=== PATIENT | female | born 1965 | race Caucasian/White ===

== ENCOUNTER → 2018-08-18 15:53 | Outpatient (CLI) | payer BC, SELFPAY ==
[2018-08-18 17:54] LABS: Anion Gap 7 (5-15); BUN 16 mg/dL (7-18); BUN/Creat Ratio 18.9 RATIO (10-20); Calcium,Total 9.1 mg/dL (8.5-10.1); Chloride 105 mmol/L (98-107); Creatinine, Serum 0.85 mg/dL (0.55-1.02); EST Glomerular Filtration Rate 75 mL/min (>60); Est Glom Filt Rate - Afr Amer 91 mL/min (>60); Glucose 82 mg/dL (74-106); Sodium Level 140 mmol/L (136-145); T4 Free Direct 0.93 ng/dL (0.76-1.46); Thyroid Stim Hormone (TSH) 1.28 uIU/mL (0.358-3.74)
== END ==
PROVIDERS: Family Provider Family Medicine; PCP Family Medicine; Visit Provider Family Medicine
DX: R73.01 Impaired fasting glucose (principal); I10 Essential (primary) hypertension; E66.01 Morbid (severe) obesity due to excess calories
CPT/HCPCS: 36415; 80048; 84439; 84443

== ENCOUNTER → 2018-09-02 08:37 | Outpatient (CLI) | payer BC, SELFPAY ==
--- NOTE | 2018-09-02 08:40 | BI_ITS ---
MAMMOGRAPHY - BILATERAL SCREENING REASON FOR EXAM: Female, 52 years old. Routine annual screening examination. PERTINENT HISTORY: Grandmother with breast cancer. TECHNIQUE: Digital bilateral breast jesika (3D mammographic acquisition) in the CC and MLO projections. 2-D mediolateral oblique (MLO) and craniocaudad (CC) views of both breasts were obtained. CAD: Full Field Digital Mammography with Computer Added Detection was performed. COMPARISON: Comparison is made with prior outside examination dated March 06, 2017. FINDINGS: Breast Composition: There are scattered areas of fibroglandular density. There are no dominant masses or suspicious calcifications. No other significant abnormalities are identified. There has been no significant change since the prior study. BI/SCREENING MAMM (CAD), BILAT IMPRESSION: Stable bilateral screening mammogram. Yearly follow-up mammogram recommended. (A) ASSESSMENT CATEGORY: BIRADS Category 1: Negative. A letter regarding these results will be sent to the patient by the facility within 30 days. Approximately 10% of breast cancers are not detected by mammography. A normal mammogram should not delay biopsy of a clinically suspicious abnormality. [id number] Electronically Signed: Bert Mitchell MD at 10:59 EST Tel [phone], Service support ,
--- OUTSIDE RECORDS SUMMARY | 2018-10-14 21:25 | XMS RPT_ITS ---
:1965 Author Organization OHIP Care Team Providers Name Role Phone Vicente Peraza Attending Unavailable Vicente Peraza Primary Care Unavailable Alivia Healy Attending Unavailable Alivia Healy Referring Unavailable Vicente Peraza Primary Care Unavailable Rianna Alvarado Attending Unavailable Vicente Peraza Referring Unavailable Rianna Alvarado Attending Unavailable Rianna Alvarado Referring Unavailable Vicente Peraza Primary Care Unavailable PROBLEMS PROBLEMS DATE TYPE CONDITION / CODE ATTENDING STATUS SOURCE 09/02/2018 Unknown Z01.419 - Encounter Rianna Alvarado for gynecological Community examination [facility] (general) (routine) Repository without abnormal findings / Z01.419(ICD-10) 09/02/2018 Unknown Z12.4 - Encounter Rianna Alvarado for screening for Community malignant neoplasm Hospital of cervix / Repository Z12.4(ICD-10) 09/03/2018 Unknown Z12.31 - Encounter Nelida Healy [facility] Repository of breast / Z12.31(ICD-10) 08/18/2018 Unknown R73.01 - Impaired Vicente Peraza Active [place] fasting glucose / Community R73.01(ICD-10) Hospital Repository 08/18/2018 Unknown I10 - Essential Vicente Peraza (primary) [facility] hypertension / Hospital I10(ICD-10) Repository 08/18/2018 Unknown E66.01 - Morbid Vicente Peraza (severe) obesity Community due to excess Hospital calories / Repository E66.01(ICD-10) PROCEDURES PROCEDURES No Procedure Records FoundRESULTS RESULTS HERBARIUM CURATOR OFFICE VISIT Observed: 09/02/2018 Status: F Source: GEO REPORT 10:27 AM [facility] REPOSITORY [facility] [address] [place] [address] OFFICE VISIT Date of Service: 09/02/18 MR#: [id number] Acct: [id number] Name: KARIS VASQUEZ Rep #: [id number] : 1965 Provider: LEONELA Alvarado Age/Sex: 52/F Location: [facility] Status: Signed Intake Vital Signs09/02/18 Height 4 ft 11.25 in 09/02/18 Weight: 242 lb 4 oz 09/02/18 Body Mass Index (BMI) 48.5 09/02/18 Blood Pressure 128/80 H Intake Visit Reasons: ANNUAL/Has seen Lining Finisher Required: No Is patient in pain?: No Allergies latex Allergy (Verified 09/02/18 09:30) Swelling Medications Esomeprazole Mag Trihydrate [Nexium] 20 mg PO DAILY 09/12/14 [History Confirmed 09/02/18] Loratadine [Claritin] 10 mg PO DAILY 09/12/14 [History Confirmed 09/02/18] Multivitamins,Therapeutic [Multivitamin] 1 tab PO DAILY 09/12/14 [History Confirmed 09/02/18] Lisinopril [Zestril] 1 tab PO DAILY 09/04/17 [History Confirmed 09/02/18] Is last menstrual period known: Yes Last Menstral Period: 08/05/18 Post menopausal: No Patient : No : No PFSH Medical History Hypertension (Chronic) Surgical History Basal cell carcinoma (Acute) delivery delivered (Acute) History of tonsillectomy and adenoidectomy (Acute) Family History Father Lung cancer Heart disease Mother Lung cancer Alzheimer disease Social History number of children: 2 Smoking Status: Never smoker alcohol intake: never substance use type: does not use seatbelt use: always do you feel safe at home: Yes 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 DatName GA/WeeksOutcome Route [facility] WeigInyuliya Hartman LgAnesthesDel LocaProviderFOB e ht en ia tn Unknown Aliya 1990 Unknown Delmer 199 4 HPI ANNUAL/Has seen SM: Details: KARIS VASQUEZ is a 52 year old who presents for new patient annual exam. Had exam with JESSY at [facility]. Last PAP: unsure History of abnormal PAP: no Last mammogram: today, pending History of abnormal mammogram: no Colon cancer screenin09/2017 Repeat 10 years Female Reproductive History Last Menstral Period: 08/05/18 Cycle Length: 21-35 Bleeding Duration: 4 Questions: Metorrhagia: No, Sexually active: Yes, Dyspareunia: No, PCB: No ROS Const Constitutional: Denies fatigue, weight gain or weight loss Cardio Card: Denies chest pain Resp Resp: Denies cough or shortness of breath with activity GI GI: Denies abdominal pain, constipation, change in stools, vomiting or bloating : Reports as per HPI; denies urinary frequency, pelvic pain, urinary urgency, vaginal discharge, vaginal itching, urinary incontinence or difficulty urinating Exam Const General: cooperative, healthy appearing, no acute distress, well developed Orientation: alert, oriented to person, oriented to place HENMN Head: normal to inspection Neck Neck: normal visual inspection Thyroid: thyroid normal Lymphatic: no lymphadenopathy noted Chest Breast inspection: normal inspection of the breasts, normal inspection of the axillae Breast palpation: normal palpation of the breasts, normal palpation of the axillae, no axillary lymphadenopathy Resp Effort AND Inspection: normal respiratory effort GI Palpation: soft, nontender, no masses Rectal Exam: deferred External Female Exam: normal external appearance, normal appearance of the urethra Urethra: normal appearance of the urethra, normal palpation Speculum Exam - Vagina: normal appearance of the vagina, normal vaginal discharge Speculum Exam - Cervix: normal appearance of the cervix (pap collected) Bimanual Exam- Vagina AND Uterus: normal bimanual exam, uterine size normal, uterine shape normal, uterus non-tender Bimanual Exam- Adnexa, other: normal adnexae, no adnexal masses, adnexae non-tender, pelvic support normal Pelvic Support: normal Neuro General: alert, oriented x3 Psych Affect: normal affect Assessment AND Plan Problems 1. Encounter for gynecological examination without abnormal finding Z01.419 2. Pap smear for cervical cancer screening Z12.4 Plan Completed breast and pelvic exam Reviewed diet and exercise Pap Thin prep pap with HPV Mammogram today pending Contraception NA Colonoscopy up to date RTO 1 year, prn with problems Rianna Alvarado SENIOR RADIATION PROTECTION TECHNICIAN Coding Level of Care Code Off vis,new,prev 40-64yrs Diagnoses Encounter for gynecological examination without abnormal finding Z01.419 Gynecological examination findings: abnormal findings ABSENT Pap smear for cervical cancer screening Z12.4 09/02/18 1027 <Electronically signed by Rianna JEAN BAPTISTE> Date Rianna COYC Cosigner Signature: Date (if applicable) CC: PAP IG HPV APTIMA Collected: 09/02/2018 Status: F Source: GEO 16/18,45 10:00 AM [facility] REPOSITORY Order Comment: CYTOLOGY INFORMATION: - CLINICAL INFORMATION: - DATE LMP/MENOPAUSE: ANNUAL/NA LMP - COLLECTION VIAL: Thin Prep Vial - DIRECTOR TRIAL SOURCE: CERVICAL - COLLECTION TECHNIQUE: BRUSH/SPATULA Specimen Comment: [id number] Specimen Comment: Source.............Cervix Specimen Comment: No. of containers..01 ThinPrep Vial TYPE CODE TESTS RESULT OUT OF REFERENCE UNITS RANGE LAB L7400.0800 . High DIAGN Comment Result Comment: EPITHELIAL CELL ABNORMALITY. ATYPICAL SQUAMOUS CELLS OF UNDETERMINED SIGNIFICANCE. LAB L7400.0900 . Normal ADEQ Comment Result Comment: Satisfactory for evaluation. Endocervical and/or squamous metaplastic cells (endocervical component) are present. LAB L7400.1300 . High RECOMM Comment Result Comment: Suggest follow up as clinically appropriate. LAB L7400.1400 . Normal PERFORM Comment Result Comment: Marissa Gama, Supervisory Office Auditor (ASCP) LAB L7400.1700 . Normal SIGN Comment Result Comment: Kee Danielson MD, Pathologist LAB L7400.1720 . Normal Path prov. Comment ICD9 Result Comment: R87.610 LAB L7400.2575 . Normal TEST METHOD Comment Result Comment: This liquid based ThinPrep(R) pap test was screened with the use of an image guided system. LAB L7400.2600 . Normal . COMM LAB L7400.2700 . Normal PAPSMR Comment Result Comment: The Pap smear is a screening test designed to aid in the detection of premalignant and malignant conditions of the uterine cervix. It is not a diagnostic procedure and should not be used as the sole means of detecting cervical cancer. Both false-positive and false-negative reports do occur. LAB L7400.2760 Negative Normal HPV APTIMA, Negative HR Result Comment: This test detects fourteen high-risk HPV types (16/18/31/33/35/39/45/ 51/52/56/58/59/66/68) without differentiation. Performed at: - [facility] [id number] [employer] Drilling Machine Operator: Emily Clemons MD, Phone: [phone] Performed at: = - [facility] [id number] [employer] Drilling Machine Operator: Emily Clemons MD, Phone: [phone] Performed By: #### L7400.0280 #### [facility] (refer to report for specific site) refer to report for address and phone number SCREENING MAMM (CAD), Observed: 09/02/2018 Status: F Source: GEO [place] 8:40 AM [facility] REPOSITORY [facility] Imaging Services [address] [place] [id number] SCREENING MAMM (CAD), BILAT MR#: [id number] Acct: [id number] Name: KARIS VASQUEZ Rep #: [id number] : 1965 F 52 From: Bert Mitchell MD PCP: Vicente Peraza MD Status: [facility] CLI Study: SCREENING MAMM (CAD), BILAT Date of Exam: 09/02/18 Exam# [id number] Ordering Dr: Alivia Healy MD MAMMOGRAPHY - BILATERAL SCREENING REASON FOR EXAM: Female, 52 years old. Routine annual screening examination. PERTINENT HISTORY: Grandmother with breast cancer. TECHNIQUE: Digital bilateral breast jesika (3D mammographic acquisition) in the CC and MLO projections. 2-D mediolateral oblique (MLO) and craniocaudad (CC) views of both breasts were obtained. CAD: Full Field Digital Mammography with Computer Added Detection was performed. COMPARISON: Comparison is made with prior outside examination dated March 06, 2017. FINDINGS: Breast Composition: There are scattered areas of fibroglandular density. There are no dominant masses or suspicious calcifications. No other significant abnormalities are identified. There has been no significant change since the prior study. BI/SCREENING MAMM (CAD), BILAT IMPRESSION: Stable bilateral screening mammogram. Yearly follow-up mammogram recommended. (A) ASSESSMENT CATEGORY: BIRADS Category 1: Negative. A letter regarding these results will be sent to the patient by the facility within 30 days. Approximately 10% of breast cancers are not detected by mammography. A normal mammogram should not delay biopsy of a clinically suspicious abnormality. [id number] Electronically Signed: Bert Mitchell MD at 10:59 EST Tel [phone], Service support , CC: Vicente Peraza MD; Alivia Healy MD Medical Practice Assistant: Signed BASIC METABOLIC Collected: 08/18/2018 Status: F Source: GEO PROFILE (BMP) 3:55 PM [facility] REPOSITORY TYPE CODE TESTS RESULT OUT OF RANGE REFERENCE UNITS LAB L501.0100 74-106 mg/dL Normal GLU 82 Result Comment: Please note revised GLUCOSE reference range effective 2017. LAB L501.1000 7-18 mg/dL Normal BUN 16 LAB L501.1100 0.55-1.02 mg/dL Normal CREAT,SERUM 0.85 Result Comment: The validity of the calculated GFR AND GFRAA in patients over 70 years has not been determined. Clinical correlation is essential. LAB L501.1110 >60 mL/min Normal EST GFR 75 Result Comment: Non- GFR Calc LAB L501.1115 >60 mL/min Normal EST GFR - AA 91 Result Comment: GFR Calc LAB L501.1300 10-20 RATIO Normal BUN/CRE 18.9 LAB L501.2200 8.5-10.1 mg/dL CA Normal 9.1 LAB L501.5300 136-145 mmol/L NA Normal 140 LAB L501.5600 3.5-5.1 mmol/L K Normal 4.0 LAB L501.5900 98-107 mmol/L CL Normal 105 LAB L501.6100 21.0-32.0 mmol/L Normal CO2 28.0 LAB L501.6200 5-15 Normal GAP 7 Performed By: #### L500.2500, L501.9520, L506.0400 #### [facility] [address] [place], [place], [id number] THYROID STIM HORMONE Collected: 08/18/2018 Status: F Source: [place] (TSH) 3:55 PM [facility] REPOSITORY TYPE CODE TESTS RESULT OUT OF RANGE REFERENCE UNITS LAB L501.9520 0.358-3.74 uIU/mL Normal TSH 1.28 Performed By: #### L500.2500, L501.9520, L506.0400 #### [facility] [address] [place], [place], [address] T4 FREE DIRECT Collected: 08/18/2018 Status: F Source: GEO 3:55 PM [facility] REPOSITORY TYPE CODE TESTS RESULT OUT OF RANGE REFERENCE UNITS LAB L506.0400 0.76-1.46 ng/dL Normal T4 FREE 0.93 DIRECT Performed By: #### L500.2500, L501.9520, L506.0400 #### [facility] [address] [place], [address] ALLERGIES ALLERGIES DATE TYPE / CODE NAME / CODE REACTION SEVERITY SOURCE 09/02/2018 Drug latex/[id number] Swelling Unknown [facility] Allergy/4160 8921(RXNORM) Hospital 48247(SNOMED Repository CT) ENCOUNTERS ENCOUNTERS ADMIT/DISCHARGE ACCOUNT ADMITTING ENCOUNTER LOCATION SOURCE NUMBER CLASS 09/02/2018 [id number] [place] [facility] ing:LABSPEC Repository 09/02/2018/ [id number] Ambulatory BMSBuilding:B Geo 8 6 [place].[facility] Hospital Repository 09/02/2018 [id number] [place] [facility] ing:OPBI Repository 08/18/2018 [id number] Ambulatory [place] [facility] ing:BFHLAB Repository PAYERS PAYERS ENCOUNTER GUARANTOR PAYER SUBSCRIBER SOURCE 09/02/2018 KARIS Truong Primary MAX M [place] [id number] Insurance:ANTHEMPolic FITZPATRICKDOB: [facility] y [place]: [id number] [id number] Repository [address]Men: [phone]) [place] Date:0599-95-77UD [phone] () [address] [place] [address] 17[address]TQ: 09/02/2018 Secondary NOT GIVENUNK [place] Insurance:SELF PAY [facility] Number: Effective Repository Date:2018-09-02 09/02/2018 KARIS Truong Primary Max M Geo [id number] Insurance:ANTHEMPolic FitzpatrickDOB: [facility] y Number: [id number] [id number] Repository [address]Lhb: (330) [place] Date:0745-64-31QK [phone] () [id number] [place] [address]YS: 09/02/2018 Secondary NOT GIVENUNK Geo Insurance:SELF PAY [facility] Number: Effective Repository Date:2018-07-11 09/02/2018 KARIS Truong Primary MAX M Geo [id number] Insurance:ANTHEMPolic FITZPATRICKDOB: [facility] Number: [id number] [id number] Repository [address]Tbe: (292) [place] Date:8972-91-11SF [phone] () [address] [place] [address]UX: 09/02/2018 Secondary NOT GIVENUNK Geo Insurance:SELF PAY [facility] Number: Effective Repository Date:2018-04-28 08/18/2018 KARIS Truong Primary Max M [place] [id number] Insurance:ANTHEMPolic FitzpatrickDOB: [facility] y Number: [id number] [place], [place] [id number] Repository [address]Hsa: ([phone]) [place] Date:8119-83-69RK [phone] () [address] [place] [address]FL: 08/18/2018 Secondary NOT GIVENUNK Geo Insurance:SELF PAY [facility] Number: Effective Repository Date:2018-08-18
== END ==
PROVIDERS: Family Provider Family Medicine; PCP Family Medicine; Referring Provider Obstetrics & Gynecology; Visit Provider Obstetrics & Gynecology
DX: Z12.31 Encounter for screening mammogram for malignant neoplasm of breast (principal)
CPT/HCPCS: 77063; 77067

== ENCOUNTER → 2018-09-02 10:00 | Outpatient (CLI) | payer BC, SELFPAY ==
[2018-09-02 09:28] VITALS: BMI 48.5
[2018-09-08 14:44] LABS: HPV APTIMA, High Risk Negative (Negative)
--- OUTSIDE RECORDS SUMMARY | 2018-10-29 12:07 | XMS RPT_ITS ---
[...] Encounter Rianna Alvarado for gynecological Community examination [facility] (general) (routine) Repository without abnormal findings / Z01.419(ICD-10) 09/02/2018 Unknown Z12.4 - Encounter Rianna Alvarado for screening for Community malignant neoplasm Hospital of cervix / Repository Z12.4(ICD-10) 09/03/2018 Unknown Z12.31 - Encounter Nelida Healy for [facility] Repository of breast / Z12.31(ICD-10) 08/18/2018 Unknown R73.01 - Impaired Vicente Peraza Active [place] fasting glucose / Community R73.01(ICD-10) Hospital Repository 08/18/2018 Unknown I10 - Essential Vicente Peraza (primary) [facility] hypertension / Hospital I10(ICD-10) Repository 08/18/2018 Unknown E66.01 - Morbid Vicente Peraza (severe) obesity Community due to excess Hospital calories / Repository E66.01(ICD-10) PROCEDURES PROCEDURES No Procedure Records FoundRESULTS RESULTS SIGN PAINTER HELPER OFFICE VISIT Observed: 09/02/2018 Status: F Source: GEO REPORT 10:27 AM [facility] 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 DatName GA/WeeksOutcome Route [facility] WeigInyuliya Hartman LgAnesthesDel LocaProviderFOB e ht en ia tn Unknown Aliya 1990 Unknown Delmer 199 4 HPI ANNUAL/Has seen SM: Details: KARIS VASQUEZ is a 52 year old who presents for new patient annual exam. Had exam with JESSY at [facility]. Last PAP: unsure History of abnormal PAP: [...] alert, oriented to person, oriented to place HENSC Head: normal to inspection Neck Neck: normal [...] 1 year, prn with problems Rianna Alvarado CLINICAL ASSISTANT PROFESSOR Coding Level of Care Code Off vis,new,prev 40-64yrs Diagnoses Encounter for gynecological examination without abnormal finding Z01.419 Gynecological examination findings: abnormal findings ABSENT Pap smear for cervical cancer screening Z12.4 09/02/18 1027 <Electronically signed by Rianna JEAN BAPTISTE> Date Rianna COYC Cosigner Signature: Date (if applicable) CC: PAP IG HPV APTIMA Collected: 09/02/2018 Status: F Source: GEO 16/18,45 10:00 AM [facility] Order Comment: CYTOLOGY INFORMATION: - CLINICAL INFORMATION: - DATE LMP/MENOPAUSE: ANNUAL/NA LMP - COLLECTION VIAL: Thin Prep Vial - BELT LACER SOURCE: CERVICAL - COLLECTION TECHNIQUE: BRUSH/SPATULA Specimen Comment: [id number] Specimen Comment: Source.............Cervix Specimen Comment: No. of [...] PERFORM Comment Result Comment: Marissa Gama, Supervisory Banquet Captain (ASCP) LAB L7400.1700 . Normal SIGN Comment [...] (16/18/31/33/35/39/45/ 51/52/56/58/59/66/68) without differentiation. Performed at: - [facility] [id number] [employer] Hand: Emily Clemons MD, Phone: [phone] Performed at: = - [facility] [id number] [employer] Hand: Emily Clemons MD, Phone: [phone] Performed By: #### L7400.0280 #### [facility] (refer to report for specific site) refer to report for address and phone number SCREENING MAMM (CAD), Observed: 09/02/2018 Status: F Source: GEO CONNOR 8:40 AM [facility] Imaging Services [address] [place] [address] SCREENING MAMM (CAD), BILAT MR#: [id number] Acct: [id number] Name: KARIS VASQUEZ Rep #: [id number] : 1965 F 52 From: Bert Mitchell MD PCP: Vicente Peraza MD Status: [facility] CLI Study: SCREENING MAMM (CAD), BILAT Date of Exam: 09/02/18 Exam# [id number] Ordering Dr: Alivia Healy MD MAMMOGRAPHY - [...] delay biopsy of a clinically suspicious abnormality. [id number] Electronically Signed: Bert Mitchell MD at 10:59 EST Tel [phone], Service support , CC: Vicente Peraza MD; Alivia Healy MD Retail Receiving Clerk: Signed BASIC METABOLIC Collected: 08/18/2018 Status: F Source: GEO PROFILE (BMP) 3:55 PM [facility] TYPE CODE TESTS RESULT OUT OF [...] Performed By: #### L500.2500, L501.9520, L506.0400 #### [facility] [address] [facility] [address] [facility]. [place], [place], [id number] THYROID STIM HORMONE Collected: 08/18/2018 Status: F Source: [place] (TSH) 3:55 PM [facility] TYPE CODE TESTS RESULT OUT OF RANGE REFERENCE UNITS LAB L501.9520 0.358-3.74 uIU/mL Normal TSH 1.28 Performed By: #### L500.2500, L501.9520, L506.0400 #### [facility] [address] [place], [place], [address] T4 FREE DIRECT Collected: 08/18/2018 Status: F Source: GEO 3:55 PM [facility] TYPE CODE TESTS RESULT OUT OF RANGE REFERENCE UNITS LAB L506.0400 0.76-1.46 ng/dL Normal T4 FREE 0.93 DIRECT Performed By: #### L500.2500, L501.9520, L506.0400 #### [facility] [address] [place], [address] ALLERGIES ALLERGIES DATE TYPE / CODE NAME / CODE REACTION SEVERITY SOURCE 09/02/2018 Drug latex/[id number] Swelling Unknown [facility] Allergy/4160 8921(RXNORM) Hospital 95268(SNOMED Repository CT) ENCOUNTERS ENCOUNTERS ADMIT/DISCHARGE ACCOUNT ADMITTING ENCOUNTER LOCATION SOURCE NUMBER CLASS 09/02/2018 [id number] Ambulatory [place] 0 [facility] ing:LABSPEC Repository 09/02/2018/ [id number] Ambulatory BMSBuilding:B Geo 8 6 [facility] Repository 09/02/2018 [id number] Amb[place] 0 [facility] ing:OPBI Repository 08/18/2018 [id number] Ambulatory Geo Geo 7 [facility] ing:BFHLAB Repository PAYERS PAYERS ENCOUNTER GUARANTOR PAYER SUBSCRIBER SOURCE 09/02/2018 KARIS Truong Primary MAX M [place] [id number] Insurance:ANTHEMPolic FITZPATRICKDOB: [facility] y Number: [id number] [id number] Repository [address]Ukm: [phone]) [place] Date:2872-22-56PH [phone] () [address] [place] [address]UU: 09/02/2018 Secondary NOT GIVENUNK [place] Insurance:SELF PAY [facility] Number: Effective Repository Date:2018-09-02 09/02/2018 KARIS Truong Primary Max M Geo [id number] Insurance:ANTHEMPolic FitzpatrickDOB: [facility] y Number: [id number], [place] [id number] Repository [address]Bnb: (330) [place] Date:2207-55-08NP [phone] () [address] [place] [address]ST: 09/02/2018 Secondary NOT GIVENUNK Geo Insurance:SELF PAY [facility] Number: Effective Repository Date:2018-07-11 09/02/2018 KARIS Truong Primary MAX M Geo [id number] Insurance:ANTHEMPolic FITZPATRICKDOB: [facility] Number: [id number] [id number] Repository [address]Nnm: [phone] [place] Date:6927-54-93XW [phone] () [address] [address]FR: 09/02/2018 Secondary NOT GIVENUNK Geo Insurance:SELF PAY [facility] Number: Effective Repository Date:2018-04-28 08/18/2018 KARIS Truong Primary Max M [place] [id number] Insurance:ANTHEMPolic FitzpatrickDOB: [facility] y Number: [id number] [place], [place] [id number] Repository [address]Xae: [phone]) [place] Date:1086-63-76LS [phone] () [address] [address]QT: 08/18/2018 Secondary NOT GIVENUNK Geo Insurance:SELF PAY [facility] Number: Effective Repository Date:2018-08-18
== END ==
PROVIDERS: Family Provider Family Medicine; PCP Family Medicine; Referring Provider Nurse Practitioner Women's Health; Visit Provider Nurse Practitioner Women's Health
DX: Z12.4 Encounter for screening for malignant neoplasm of cervix (principal)
CPT/HCPCS: 87624; 88175; G0145

== ENCOUNTER → 2019-09-22 08:49 | Outpatient (CLI) | payer BC, SELFPAY ==
[2019-09-07 11:05] VITALS: BMI 48.5
--- NOTE | 2019-09-22 09:01 | BI_ITS ---
MAMMOGRAPHY - BILATERAL SCREENING REASON FOR EXAM: Female, 53 years old. Routine annual screening examination. PERTINENT HISTORY: Grandmother with breast cancer. TECHNIQUE: Digital bilateral breast lazaro (3D mammographic acquisition) in the CC and MLO projections. 2-D mediolateral oblique (MLO) and craniocaudad (CC) views of both breasts were obtained. CAD: Full Field Digital Mammography with Computer Added Detection was performed. COMPARISON: Comparison is made with prior study dated September 02, 2018. FINDINGS: Breast Composition: There are scattered areas of fibroglandular density. There are no dominant masses or suspicious calcifications. No other significant abnormalities are identified. There has been no significant change since the prior study. BI/SCREEN MAMM (CAD) W/LAZARO BILAT IMPRESSION: Stable bilateral screening mammogram. Yearly follow-up mammogram recommended. (A) ASSESSMENT CATEGORY: BIRADS Category 1: Negative. A letter regarding these results will be sent to the patient by the facility within 30 days. Approximately 10% of breast cancers are not detected by mammography. A normal mammogram should not delay biopsy of a clinically suspicious abnormality. [id number] Electronically Signed: Bert Mitchell, at 10:11 EST , Service support ,
--- NOTE | 2019-09-22 09:19 | BD_ITS ---
STUDY: DUAL ENERGY X-RAY ABSORPTIOMETRY / DXA REASON FOR EXAM: Female, 53 years old. The patient is postmenopausal. TECHNIQUE: Bone Mineral Density (BMD) measurements of lumbar spine and bilateral hips were obtained. COMPARISON: None. FINDINGS: Lumbar Spine (L1-L4): g/cm2 (1.328) / T-score (1.2) / Z-score (1.9) Findings are suggestive of normal bone density with a low fracture risk. Left Femur Total: g/cm2 (1.159) / T-score (1.2) / Z-score (1.8) Left Femoral Neck: g/cm2 (0.939) / T-score (-0.7) / Z-score (0.2) Right Femur Total: g/cm2 (1.169) / T-score (1.3) / Z-score (1.9) Right Femoral Neck: g/cm2 (0.986) / T-score (-0.4) / Z-score (0.5) BD/Dexa Bone Density Study IMPRESSION: The patient is considered normal as outlined below according to World Александр Organization (WHO) criteria with a low fracture risk. Reference Information: The T-score is the number of standard deviations above or below the standard which is normal for young adults at their peak bone mineral density. The World Health Organization (WHO) interprets the T-scores as follows: Above -1 Normal bone density Between -1 and -2.5 Osteopenia Equal to / or below -2.5 Osteoporosis As a practical clinical guideline, osteopenia may be graded as follows: Mild -1 through -1.5 Moderate -1.6 through -2.0 Severe -2.1 through -2.4 The Z-score is the number of standard deviations above or below age-matched controls. A Z-score of less than -1.5 would be considered abnormal. References: 1. NIH Osteoporosis and Related Bone Diseases http://www.osteo.org 2. International Society for Clinical Densitometry http://www.iscd.org 3. National Osteoporosis Foundation http://www.nof.org Electronically Signed: Bert Mitchell, at 15:37 EST , Service support ,
== END ==
PROVIDERS: Family Provider Family Medicine; PCP Family Medicine; Referring Provider Obstetrics & Gynecology; Visit Provider Obstetrics & Gynecology
DX: Z12.31 Encounter for screening mammogram for malignant neoplasm of breast (principal); Z13.89 Encounter for screening for other disorder
CPT/HCPCS: 77063; 77067; 77080

== ENCOUNTER → 2020-03-09 | Outpatient (CLI) | payer BC, SELFPAY ==
[2019-09-07 11:05] VITALS: BMI 48.5
[2020-03-09 12:41] LABS: Absolute Lymphocyte Count 3.05 X10^3/uL (0.83-4.51); Absolute Neutrophil Count 3.1 X10^3/uL (2.0-7.7); Basophil# 0.03 X10^3/uL; Basophil% 0.5 % (0-1); Eosinophil# 0.12 X10^3/uL; Eosinophils% 1.8 % (0-5); Hematocrit 35.5 % (37-47); Hemoglobin 11.4 g/dL (12.0-15.0); Lymphocyte # 3.05 X10^3/ul (4.0); Mean Corp Hgb Conc 32.1 g/dL (32-36); Mean Corpuscular Hgb 28.2 pg (27.0-32.0); Mean Corpuscular Volume 87.9 fL (81-99); Mean Platelet Vol. 10.8 fl (6.2-12.0); Monocyte# 0.37 X10^3/uL; Monocyte% 5.6 % (0-10); NRBC Flagged by Analyzer 0 % (0-5); Neutrophil # 3.05 X10^3/uL (2.7-7.7); Neutrophil % 45.9 % (47-70); Platelet Count 287 K/mm3 (150-450); RBC Distribution Width CV 13.5 % (11.6-14.6); RBC Distribution Width SD 42.9 fl (35.1-43.9); Red Blood Count 4.04 M/mm3 (4.2-5.4); White Blood Count 6.6 K/mm3 (4.4-11.0)
[2020-03-09 12:48] LABS: Anion Gap 9 (5-15); BUN 14 mg/dL (7-18); Chloride 105 mmol/L (98-107); Cholesterol 164 mg/dL (200); Creatinine, Serum 0.74 mg/dL (0.55-1.02); EST Glomerular Filtration Rate 88 mL/min (>60); Est Glom Filt Rate - Afr Amer 106 mL/min (>60); Glucose 101 mg/dL (74-106); High Density Lipoprotein 41 mg/dL; Potassium 3.7 mmol/L (3.5-5.1); Sodium Level 141 mmol/L (136-145); Triglycerides 81 mg/dL; Very Low Density Lipoprotein 16 mg/dL (5-40)
[2020-03-09 12:55] LABS: Hemoglobin A1c 5.7 % (3.8-5.6)
[2020-03-10 08:22] LABS: Ferritin 9 ng/mL (8-252); Iron 63 ug/dL (50-170)
== END | disposition home or self-care (01) ==
LOC: BFHLAB 10:27
PROVIDERS: Family Medicine; PCP Family Medicine; Visit Provider Family Medicine
DX: I10 Essential (primary) hypertension (principal); R73.01 Impaired fasting glucose; D64.9 Anemia, unspecified
CPT/HCPCS: 36415; 80048; 80061; 82728; 83036; 83540; 85025

== ENCOUNTER → 2020-04-26 | Outpatient (CLI) | payer BC, SELFPAY ==
[2019-09-07 11:05] VITALS: BMI 48.5
[2020-04-26 12:44] LABS: Absolute Lymphocyte Count 3.14 X10^3/uL (0.83-4.51); Absolute Neutrophil Count 3.5 X10^3/uL (2.0-7.7); Basophil# 0.02 X10^3/uL; Basophil% 0.3 % (0-1); Eosinophil# 0.14 X10^3/uL; Eosinophils% 1.9 % (0-5); Hematocrit 35.4 % (37-47); Hemoglobin 11.6 g/dL (12.0-15.0); Lymphocyte # 3.14 X10^3/ul (4.0); Lymphocyte % 43.4 % (19-41); Mean Corp Hgb Conc 32.8 g/dL (32-36); Mean Corpuscular Volume 88.5 fL (81-99); Mean Platelet Vol. 11.2 fl (6.2-12.0); Monocyte# 0.39 X10^3/uL; Monocyte% 5.4 % (0-10); NRBC Flagged by Analyzer 0 % (0-5); Neutrophil # 3.52 X10^3/uL (2.7-7.7); Neutrophil % 48.7 % (47-70); Platelet Count 272 K/mm3 (150-450); RBC Distribution Width CV 14.8 % (11.6-14.6); RBC Distribution Width SD 47.8 fl (35.1-43.9); White Blood Count 7.2 K/mm3 (4.4-11.0)
[2020-04-26 12:55] LABS: Ferritin 15 ng/mL (8-252); Iron 51 ug/dL (50-170)
== END | disposition home or self-care (01) ==
LOC: BFHLAB 10:22
PROVIDERS: PCP Family Medicine; Visit Provider Family Medicine
DX: D64.9 Anemia, unspecified (principal)
CPT/HCPCS: 36415; 82728; 83540; 85025

== ENCOUNTER → 2020-09-12 11:52 | Outpatient (CLI) | payer BC, SELFPAY ==
[2020-09-12 11:16] VITALS: BMI 48.2
[2020-09-12 12:10] LABS: Absolute Neutrophil Count 3.5 X10^3/uL (2.0-7.7); Basophil# 0.03 X10^3/uL; Basophil% 0.4 % (0-1); Eosinophil# 0.12 X10^3/uL; Eosinophils% 1.7 % (0-5); Hematocrit 41.9 % (37-47); Hemoglobin 13.6 g/dL (12.0-15.0); Lymphocyte % 41.7 % (19-41); Mean Corp Hgb Conc 32.5 g/dL (32-36); Mean Corpuscular Hgb 29.4 pg (27.0-32.0); Mean Corpuscular Volume 90.5 fL (81-99); Monocyte# 0.51 X10^3/uL; Monocyte% 7.1 % (0-10); NRBC Flagged by Analyzer 0 % (0-5); Neutrophil # 3.51 X10^3/uL (2.7-7.7); Neutrophil % 48.7 % (47-70); Platelet Count 252 K/mm3 (150-450); RBC Distribution Width CV 13.6 % (11.6-14.6); RBC Distribution Width SD 44.1 fl (35.1-43.9); Red Blood Count 4.63 M/mm3 (4.2-5.4); White Blood Count 7.2 K/mm3 (4.4-11.0)
== END ==
PROVIDERS: PCP Family Medicine; Referring Provider Obstetrics & Gynecology; Visit Provider Obstetrics & Gynecology
DX: N93.9 Abnormal uterine and vaginal bleeding, unspecified (principal)
CPT/HCPCS: 36415; 85025

== ENCOUNTER → 2020-10-06 10:51 | Outpatient (CLI) | payer BC, SELFPAY ==
[2020-09-12 11:16] VITALS: BMI 48.2
--- NOTE | 2020-10-06 10:53 | BI_ITS ---
MAMMOGRAPHY - BILATERAL SCREENING REASON FOR EXAM: Female, 55 years old. Routine annual screening examination. PERTINENT HISTORY: Grandmother with breast cancer. TECHNIQUE: Digital bilateral breast lazaro (3D mammographic acquisition) in the CC and MLO projections. 2-D mediolateral oblique (MLO) and craniocaudad (CC) views of both breasts were obtained. CAD: Full Field Digital Mammography with Computer Added Detection was performed. COMPARISON: Comparison is made with prior study dated 09/22/2019 and 09/02/2018. FINDINGS: Breast Composition: There are scattered areas of fibroglandular density. There are no dominant masses or suspicious calcifications. No other significant abnormalities are identified. There has been no significant change since the prior study. BI/SCREEN MAMM (CAD) W/LAZARO BILAT IMPRESSION: Stable bilateral screening mammogram. Yearly follow-up mammogram recommended. (A) ASSESSMENT CATEGORY: BIRADS Category 1: Negative. A letter regarding these results will be sent to the patient by the facility within 30 days. Approximately 10% of breast cancers are not detected by mammography. A normal mammogram should not delay biopsy of a clinically suspicious abnormality. [id number] Electronically Signed: Bert Mitchell, at 10:53 EST , Service support ,
--- NOTE | 2020-10-06 10:53 | US_ITS ---
STUDY: ULTRASOUND OF THE FEMALE PELVIS - COMPLETE REASON FOR EXAM: Female, 54 years old. aub LMP: 09/22/2020 TECHNIQUE: Transabdominal and Transvaginal TECHNICAL QUALITY: Adequate. COMPARISON: None. FINDINGS: The uterus is anteverted and is in a midline position. The uterus measures 11.2 x 6.6 x 4.5 cm. There is a Nabothian cyst of the cervix. The endometrium measures 6 mm in thickness, and is hyperechoic. There is no demonstrated endometrial mass. 4.2 cm exophytic mass of the left side of the uterus consistent with an exophytic subserosal fibroid. I.U.D. - The patient does not have an I.U.D. The right ovary is non-visualized.. The left ovary is visualized. The left ovary measures 1.8 x 2.2 x 1.0 cm. There is no left ovarian cyst or ovarian mass. There is no visualized left adnexal mass or complex lesion. There is normal arterial and normal venous vascularity. There is no fluid in the cul-de-sac. The pre void volume of the bladder was ml. The post void volume of the bladder was ml. Polycystic ovary disease: No. US/Transvaginal Non- IMPRESSION: 4.2 cm exophytic subserosal fibroid of the left side of the uterus. Electronically Signed: Buck Montelongo MD at 16:59 EST Tel , Service support ,
--- NOTE | 2020-10-06 10:53 | US_ITS ---
STUDY: ULTRASOUND OF THE FEMALE PELVIS - COMPLETE REASON FOR EXAM: Female, 54 years old. aub LMP: 09/22/2020 TECHNIQUE: Transabdominal and Transvaginal TECHNICAL QUALITY: Adequate. COMPARISON: None. FINDINGS: The uterus is anteverted and is in a midline position. The uterus measures 11.2 x 6.6 x 4.5 cm. There is a Nabothian cyst of the cervix. The endometrium measures 6 mm in thickness, and is hyperechoic. There is no demonstrated endometrial mass. 4.2 cm exophytic mass of the left side of the uterus consistent with an exophytic subserosal fibroid. I.U.D. - The patient does not have an I.U.D. The right ovary is non-visualized.. The left ovary is visualized. The left ovary measures 1.8 x 2.2 x 1.0 cm. There is no left ovarian cyst or ovarian mass. There is no visualized left adnexal mass or complex lesion. There is normal arterial and normal venous vascularity. There is no fluid in the cul-de-sac. The pre void volume of the bladder was ml. The post void volume of the bladder was ml. Polycystic ovary disease: No. US/Pelvic (Non ) IMPRESSION: 4.2 cm exophytic subserosal fibroid of the left side of the uterus. Electronically Signed: Buck Montelongo MD at 16:59 EST Tel , Service support ,
== END ==
PROVIDERS: PCP Family Medicine; Referring Provider Obstetrics & Gynecology; Visit Provider Obstetrics & Gynecology
DX: N93.9 Abnormal uterine and vaginal bleeding, unspecified (principal); Z12.31 Encounter for screening mammogram for malignant neoplasm of breast
CPT/HCPCS: 76830; 76856; 77063; 77067

== ENCOUNTER → 2020-10-28 | Outpatient (CLI) | payer BC, SELFPAY ==
--- NOTE | 2020-10-28 | EMB_PTH ---
PATIENT: KARIS VASQUEZ LOC: [facility] U#:[id number] AGE/SX: 55/F ROOM: RE10/28/[address]: Dr. Alivia Healy MD : 1965 BED: DIS: 10/28/2020 SPEC #: [id number] RECD: 10/28/20 16:19 STATUS: NAOMY BENTLEY #: [id number] SEAMUS: 10/28/20 00:[address]: Alivia Healy DEPT: SURGICAL PATHOLOGY RECD BY: Casandra Holbrook ENTERED: 10/31/20 07:47 SP TYPE: ENDOM BX/C MIKI DR: Dr. Vicente Peraza MD Tissues: Endometrium, NOS Procedures: Surgery Specimen Level IV HEADER OPERATION: Endometrial biopsy PRE-OP DIAGNOSIS: Abnormal uterine bleeding TISSUE SUBMITTED: Endometrial biopsy MICROSCOPIC DIAGNOSIS Endometrium, biopsy: Scant fragments of inactive endometrium with recent stromal hemorrhage. AM:fozia 11/01/2020 MICROSCOPIC DESCRIPTION Slides are reviewed. GROSS DESCRIPTION Received is one container labeled with the patient's name and not further designated. The specimen consists of multiple fragments of hemorrhagic soft tissue that in aggregate measure 1.5 x 0.2 x 0.1 cm. The specimen is totally submitted in one cassette. / SJ:fozia 10/31/20 TC:5 CPT: [id number]
[2020-10-28 13:58] VITALS: BMI 48.4
== END | disposition home or self-care (01) ==
LOC: LABSPEC 16:24
PROVIDERS: PCP Family Medicine; Referring Provider Obstetrics & Gynecology; Visit Provider Obstetrics & Gynecology
DX: N93.9 Abnormal uterine and vaginal bleeding, unspecified (principal)
CPT/HCPCS: 88305

== ENCOUNTER → 2021-01-13 11:40 | Outpatient (CLI) | payer BC, SELFPAY ==
[2020-10-28 13:58] VITALS: BMI 48.4
[2021-01-13 15:22] LABS: Absolute Neutrophil Count 3.1 X10^3/uL (2.0-7.7); Basophil# 0.03 X10^3/uL; Basophil% 0.5 % (0-1); Eosinophil# 0.08 X10^3/uL; Eosinophils% 1.3 % (0-5); Hematocrit 41.4 % (37-47); Hemoglobin 13.2 g/dL (12.0-15.0); Lymphocyte % 38.5 % (19-41); Mean Corp Hgb Conc 31.9 g/dL (32-36); Mean Corpuscular Hgb 28.9 pg (27.0-32.0); Mean Corpuscular Volume 90.8 fL (81-99); Mean Platelet Vol. 11.4 fl (6.2-12.0); Monocyte# 0.47 X10^3/uL; Monocyte% 7.9 % (0-10); NRBC Flagged by Analyzer 0 % (0-5); Neutrophil # 3.09 X10^3/uL (2.7-7.7); Neutrophil % 51.6 % (47-70); Platelet Count 244 K/mm3 (150-450); RBC Distribution Width CV 13.2 % (11.6-14.6); RBC Distribution Width SD 43.6 fl (35.1-43.9); Red Blood Count 4.56 M/mm3 (4.2-5.4)
[2021-01-13 16:08] LABS: AST(SGOT) 21 U/L (15-37); Alanine Aminotransfer ALT/SGPT 30 U/L (13-56); Albumin, Serum 3.7 g/dL (3.2-5.0); Alkaline Phosphatase 67 U/L (45-117); Anion Gap 6 (5-15); BUN 14 mg/dL (7-18); BUN/Creat Ratio 18.5 RATIO (10-20); Calcium,Total 9.1 mg/dL (8.5-10.1); Chloride 106 mmol/L (98-107); Creatinine, Serum 0.76 mg/dL (0.55-1.02); EST Glomerular Filtration Rate 85 mL/min (>60); Est Glom Filt Rate - Afr Amer 103 mL/min (>60); Globulin 3.7 g/dL (2.2-4.2); Glucose 97 mg/dL (74-106); Protein, Total 7.4 g/dL (6.4-8.2); Sodium Level 139 mmol/L (136-145); T4 Free Direct 0.89 ng/dL (0.76-1.46); Thyroid Stim Hormone (TSH) 1.24 uIU/mL (0.358-3.74)
== END ==
PROVIDERS: PCP Family Medicine; Referring Provider Family Medicine; Visit Provider Family Medicine
DX: I10 Essential (primary) hypertension (principal); D64.9 Anemia, unspecified; R53.83 Other fatigue; E66.01 Morbid (severe) obesity due to excess calories
CPT/HCPCS: 36415; 80053; 84439; 84443; 85025

== ENCOUNTER 2021-10-12 11:36 | Outpatient (CLI) | payer BC, SELFPAY | END 2021-10-12 23:59 | disposition short-term general hospital (02) | LOC: LABSPEC 11:37 | PROVIDERS: PCP Family Medicine; Referring Provider Physician Assistant; Visit Provider Physician Assistant | DX: Z11.52 Encounter for screening for COVID-19 (principal) | CPT/HCPCS: 87635; U0003; U0005 ==

== ENCOUNTER 2021-11-03 10:43 | Outpatient (CLI) | payer BC, SELFPAY ==
--- NOTE | 2021-11-03 10:44 | BI_ITS ---
MAMMOGRAPHY - BILATERAL SCREENING REASON FOR EXAM: Female, 56 years old. Routine annual screening examination. PERTINENT HISTORY: Grandmother with breast cancer. TECHNIQUE: Digital bilateral breast lazaro (3D mammographic acquisition) in the CC and MLO projections. 2-D mediolateral oblique (MLO) and craniocaudad (CC) views of both breasts were obtained. CAD: Full Field Digital Mammography with Computer Added Detection was performed. COMPARISON: Comparison is made with prior study dated 10/06/2020 and 09/22/2019. FINDINGS: Breast Composition: There are scattered areas of fibroglandular density. There are no dominant masses or suspicious calcifications. No other significant abnormalities are identified. There has been no significant change since the prior study. BI/SCRN MAMM (CAD)W/LAZARO BILAT IMPRESSION: Stable bilateral screening mammogram. Yearly follow-up mammogram recommended. (A) ASSESSMENT CATEGORY: BIRADS Category 1: Negative. A letter regarding these results will be sent to the patient by the facility within 30 days. Approximately 10% of breast cancers are not detected by mammography. A normal mammogram should not delay biopsy of a clinically suspicious abnormality. [id number] Electronically Signed: Bert Mitchell MD at 13:59 EST ,
[2021-11-10 14:07] LABS: HPV APTIMA, High Risk Negative (Negative)
== END 2021-11-03 23:59 | disposition short-term general hospital (02) ==
PROVIDERS: PCP Family Medicine; Referring Provider Obstetrics & Gynecology; Visit Provider Obstetrics & Gynecology
DX: Z12.31 Encounter for screening mammogram for malignant neoplasm of breast (principal); Z12.4 Encounter for screening for malignant neoplasm of cervix
CPT/HCPCS: 77063; 77067; 87624; 88175; G0145

== ENCOUNTER → 2022-11-09 | Outpatient (CLI) | payer BC, SELFPAY ==
--- NOTE | 2022-11-09 10:26 | BI_ITS ---
MAMMOGRAPHY - BILATERAL SCREENING REASON FOR EXAM: Female, 57 years old. Routine annual screening examination. PERTINENT HISTORY: Grandmother with breast cancer. TECHNIQUE: Digital bilateral breast lazaro (3D mammographic acquisition) in the CC and MLO projections. 2-D mediolateral oblique (MLO) and craniocaudad (CC) views of both breasts were obtained. CAD: Full Field Digital Mammography with Computer Added Detection was performed. COMPARISON: Comparison is made with prior study dated 11/03/2021 and 10/06/2020. FINDINGS: Breast Composition: There are scattered areas of fibroglandular density. There are no dominant masses or suspicious calcifications. No other significant abnormalities are identified. There has been no significant change since the prior study. BI/SCRN MAMM (CAD)W/LZAARO BILAT IMPRESSION: Stable bilateral screening mammogram. Yearly follow-up mammogram recommended. (A) ASSESSMENT CATEGORY: BIRADS Category 1: Negative. A letter regarding these results will be sent to the patient by the facility within 30 days. Approximately 10% of breast cancers are not detected by mammography. A normal mammogram should not delay biopsy of a clinically suspicious abnormality. [id number] Electronically Signed: Bert Mitchell MD at 11:58 EST ,
== END | disposition home or self-care (01) ==
LOC: OPBI 10:26
PROVIDERS: Referring Provider Obstetrics & Gynecology; Visit Provider Obstetrics & Gynecology
DX: Z12.31 Encounter for screening mammogram for malignant neoplasm of breast (principal)
CPT/HCPCS: 77063; 77067

== ENCOUNTER → 2023-05-30 | Outpatient (CLI) | payer BC, SELFPAY ==
--- NOTE | 2023-05-30 08:30 | RAD_ITS ---
EXAMINATION: Fluoroscopic esophagram INDICATION: DYSPHAGIA EXAMINATION/TECHNIQUE: Thick and thin barium oral contrast , barium tablet, and gas bubbles were administered to the patient. Total Fluoroscopic Time: 16 seconds AND number of Fluoroscopic Images: 7 spot images and 3 cine clips Radiation dosage index: 33.29 mGy COMPARISON: None. FINDINGS: No masses or strictures are identified. There is no hiatal hernia. Somewhat feline esophagus mucosal pattern which can be seen with gastroesophageal reflux. However, no reflux is elicited on prone oblique views. Normal motility. Barium pill passes normally into the stomach. RAD/Esophagus Single Contrast IMPRESSION: Somewhat feline esophagus mucosal pattern is a transient finding and can be seen with gastroesophageal reflux. The remainder of the exam is normal. Electronically Signed: Jacques Askew DO at 11:45 EDT ,
== END | disposition home or self-care (01) ==
PROVIDERS: Referring Provider Otolaryngology Otolaryngology/Facial Plastic Surgery; Visit Provider Otolaryngology Otolaryngology/Facial Plastic Surgery
DX: R13.10 Dysphagia, unspecified (principal); K21.9 Gastro-esophageal reflux disease without esophagitis
CPT/HCPCS: 74220

== ENCOUNTER → 2023-11-18 | Outpatient (CLI) | payer BC, SELFPAY ==
--- NOTE | 2023-11-18 12:20 | BI_ITS ---
MAMMOGRAPHY - BILATERAL SCREENING REASON FOR EXAM: Female, 58 years old. Routine annual screening examination. PERTINENT HISTORY: Personal history of breast cancer. Prior left lumpectomy and right excisional breast biopsy. TECHNIQUE: Digital bilateral breast lazaro (3D mammographic acquisition) in the CC and MLO projections. 2-D mediolateral oblique (MLO) and craniocaudad (CC) views of both breasts were obtained. CAD: Full Field Digital Mammography with Computer Added Detection was performed. COMPARISON: Comparison is made with prior study of November 09, 2022 and November 03, 2021. FINDINGS: Breast Composition: The breasts are almost entirely fatty. There are no dominant masses or suspicious calcifications. No other significant abnormalities are identified. There has been no significant change since the prior study. BI/SCRN MAMM (CAD)W/LAZARO BILAT IMPRESSION: Stable bilateral screening mammogram. Yearly follow-up mammogram recommended. (A) ASSESSMENT CATEGORY: BIRADS Category 1: Negative. A letter regarding these results will be sent to the patient by the facility within 30 days. Approximately 10% of breast cancers are not detected by mammography. A normal mammogram should not delay biopsy of a clinically suspicious abnormality. [id number] Electronically Signed: Bert Mitchell MD at 13:57 EST ,
--- OUTSIDE RECORDS SUMMARY | 2023-11-18 12:40 | XMS RPT_ITS | CCD ---
Author Name Unknown Address [address] [place] [address] Organization [facility] Care Team Providers Care Special Projects Manager Name Role Phone Nata Carrillo MD Unavailable [phone] Nel Monroy PA-C Unavailable [phone] Unavailable Primary Care Provider UnavailBoyd Rahman Referring Unavailable POLLY LAURA Attending Unavailable Allergies Allergy Classification Reported Allergen(s) Allergy Type Date of Onset Reaction(s) Facility (2 sources) Amoxicillin; Translations: [AMOXICILLIN] Drug Allergy 10-11-2005 Diarrhea [facility] Work Phone: (2 sources) Azithromycin; Translations: [AZITHROMYCIN] Drug Allergy 10-11-[address] [facility] Work Phone: (2 sources) Latex; Translations: [LATEX] Propensity to adverse reactions 10-11-2005 [facility] Work Phone: (2 sources) Fragrances; Translations: [FRAGRANCES] Propensity to adverse reactions 10-11-2005 [facility] Work Phone: Medications Completed/Discontinued Medications Medication Drug Class(es) Dates Sig (Normalized) Sig (Original) 200 actuat albuterol 0.09 mg/actuat metered dose inhaler (1 source) beta2-Adrenergic Agonist Start: 11-06-2013 take 2 puff(s) by inhalation every four hours as needed for cough albuterol 90 mcg/actuation aero Indications: URI (upper respiratory infection) Inhale 2 Puffs as instructed every 4 hours as needed (shortness of breath/cough/wheez ing.). With spacer please. 1 Inhaler 0 11/06/2013 Active Problems Active Problems Problem Classification Problem Date Documented Date Episodic/Chronic Esophageal disorders (1 source) Gastroesophageal reflux disease; Translations: [Gastro-esophageal reflux disease without esophagitis] 06-12-2007 Chronic Essential hypertension (1 source) Benign essential hypertension; Translations: [Essential (primary) hypertension] 10-11-2005 Chronic Gastritis and duodenitis (1 source) Gastritis; Translations: [Other specified gastritis] 10-11-2005 Episodic Other disorders of stomach and duodenum (1 source) Lesion of stomach; Translations: [Disease of stomach and duodenum, unspecified] 08-30-2023 Episodic Other disorders of stomach and duodenum (1 source) Disease of stomach and duodenum, unspecified; Translations: [Subepithelial gastric lesion] Onset: 10-24-2023 Episodic Other nervous system disorders (1 source) Carpal tunnel syndrome; Translations: [Carpal tunnel syndrome, unspecified upper limb] 06-12-2007 Chronic Other nutritional; endocrine; and metabolic disorders (1 source) Obesity; Translations: [Obesity, unspecified] 10-11-2005 Chronic Other upper respiratory disease (1 source) Allergic rhinitis; Translations: [Allergic rhinitis, unspecified] 10-11-2005 Chronic Residual codes; unclassified (1 source) Obstructive sleep apnea syndrome; Translations: [Obstructive sleep apnea (adult) (pediatric)] 06-12-2007 Chronic Unclassified (2 sources) Screening for malignant neoplasm of colon ; Translations: [Encounter for screening for malignant neoplasm of colon] Onset: 08-15-2017 08-15-2017 Past or Other Problems Problem Classification Problem Date Documented Da te Episodic/Chronic Other non-epithelial cancer of skin (1 source) Malignant neoplasm of skin; Translations: [Other and unspecified malignant neoplasm of skin, site unspecified] Onset: 09-28-2007 09-28-2007 Episodic Results Test Name Value Interpretation Reference Range Facil ity Encounters Encounter Date Encounter Type Care Provider Facility Start: 10-24-2023 End: 10-24-2023 ambulatory Boyd Mon Facility:[facility] Start: 08-30-2023 Telephone encounter Boyd Desai MD Work Phone: Gastroenterology Procedures Date Procedure Procedure Detail Performing Clinician Start: 06-12-2007 Lipid 1996 panel - S evonne or Plasma Boyd Mon MD Work Phone: Plan of Treatment Date Care Activity Detail Author Start: 06-07-2023 Influenza [facility] Start: 10-07-2022 Depression Assessment Depression Assessment [facility] Start: 01-11-2021 HPV Testing HPV Testing [facility] Start: 01-11-2021 Pap Testing Pap Testing [facility] Start: 03-06-2018 Mammography Mammogram Screening [facility] Start: 09-09-2017 End: 09-09-2017 Appointment Appointment [facility] Work Phone: Start: 08-15-2017 End: 08-15-2017 Colonoscopy flx dx w/collj spec when pfrmd Colonoscopy [facility] Work Phone: Start: 2016 Shingrix Vaccine (1 of 2) Shingrix Vaccine (1 of 2) [facility] Start: 06-12-2012 Lipid 1996 panel - Serum or Plasma Lipid Screening [facility] Start: 03-16-2012 Diabetes Screening Diabetes Screening [facility] Start: 2011 Cologuard (FIT-DNA) Cologuard (FIT-DNA) [facility] Start: 2011 Colonoscopy Colonoscopy [facility] Start: 2011 Colorectal Cancer Screening Colorectal Cancer Screening [facility] Start: [address] Colonography [facility] Start: 2011 Fecal Occult Blood Fecal Occult Blood [facility] Start: 2011 Sigmoidoscopy Sigmoidoscopy [facility] Start: 1985 Urine microalbumin profile DTaP,Tdap,Td Vaccine (1 - Tdap) [facility] Start: 1984 Hepatitis C Screening Hepatitis C Screening [facility] Start: 1984 HIV Screening HIV Screening [facility] Start: 04-07-1967 Covid-19 Vaccine (#1) Covid-19 Vaccine (#1) [facility] Start: 1966 Hepatitis B Vaccine (1 of 3 - 3-dose series) Hepatitis B Vaccine (1 of 3 - 3-dose series) [facility] End: 08-30-2024 EGD - THERAPEUTIC, EUS, OR TUBE INTERVENTIONS EGD - THERAPEUTIC, EUS, OR TUBE INTERVENTIONS Endoscopy Routine Subepithelial gastric lesion 1 Occurrences starting 08/30/2023 until 08/30/2024 [facility] Work Phone: Payers Date Payer Category Payer Unknown [employer] BLUE CARD PPO OOS [id number] 2014-Present [phone] [address] [place] [address] PPO [id number] 2014 Unknown [id number] Social History Date Type Detail Facility [facility]: 01-12-2016 [facility] Work Phone: Start: 01-12-2016 Tobacco use and exposure Smokeless tobacco non-user [facility] Work Phone: Start: 03-06-2017 Alcohol intake 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 non-dr 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 winder of alcohol (finding) [facility] Start: 03-09-2018 History of Social function [facility] Start: 03-09-2018 Tobacco use panel [facility] Start: 1965 Sex Assigned At Not on file C [facility] Clinical Note 10-24-2023 Note Date & Type Note Facility 10-24-2023 Note Q3 Patient Name: Karis Regalado Procedure Date: 10/24/2023 7:49 AM Date of : 1965 Admit Type: Outpatient Age: 58 Gender: Female Note Status: Finalized Attending MD: Brian Crow MD, [id number] Procedure: Upper EUS Indications: Gastric deformity on endoscopy/Subepithelial tumor versus extrinsic compression Providers: Brian Crow MD Patient Profile: This is a 58 year old female. Refer to note in patient chart for documentation of history and physical. Referring Physician: Mike West (Referring MD) Medicines: Monitored Anesthesia Care Complications: No immediate complications. Requesting Provider: Procedure: Pre-Anesthesia Assessment: - Prior to the procedure, a History and Physical was performed, and patient medications and allergies were reviewed. The patient's tolerance of previous anesthesia was also reviewed. The risks and benefits of the procedure and the sedation options and risks were discussed with the patient. All questions were answered, and informed consent was obtained. Prior Anticoagulants: The patient has taken no anticoagulant or antiplatelet agents. ASA Grade Assessment: I - A normal, healthy patient. After reviewing the risks and benefits, the patient was deemed in satisfactory condition to undergo the procedure. After obtaining informed consent, the endoscope was passed under direct vision. Throughout the procedure, the patient's blood pressure, pulse, and oxygen saturations were monitored continuously. The Endoscope was introduced through the mouth, and advanced to the second part of duodenum. The Endoscope was introduced through the mouth, and advanced to the antrum of the stomach. The upper EUS was accomplished without difficulty. The patient tolerated the procedure well. Moderate Sedation: MAC anesthesia was administered by the anesthesia team. Findings: ENDOSCOPIC FINDING: : The examined esophagus was normal. Mild portal hypertensive gastropathy was found in the entire examined stomach. The examined duodenum was normal. A single subepithelial papule (nodule) with no stigmata of recent bleeding was found in the gastric antrum. The cardia and gastric fundus were normal on retroflexion. ENDOSONOGRAPHIC FINDING: : An oval intramural (subepithelial) lesion was found in the antrum of the stomach. The lesion was hyperechoic. Sonographically, the lesion appeared to originate from the deep mucosa (Layer 2). The lesion also appeared to involve the following wall layer(s): submucosa (Layer 3). The lesion measured 11 mm (in maximum thickness). The outer endosonographic borders were well defined. Impression: - Portal hypertensive gastropathy. - A subepithelial lesion was found in the antrum of the stomach. The lesion appeared to originate from within the deep mucosa (Layer 2-3). The diagnosis is aberrant pancreas (pancreatic rest). - No specimens collected. Estimated Blood Loss: Estimated blood loss: none. Recommendation: - Pancreatic rest is a benign entity and requires no surveillance. - Discharge patient to home (ambulatory). - Patient has a contact number available for emergencies. The signs and symptoms of potential delayed complications were discussed with the patient. Return to normal activities tomorrow. Written discharge instructions were provided to the patient. - Resume previous diet. - Continue present medications. - Return to referring physician. Procedure Code(s): --- Professional --- 65311, Esophagogastroduodenoscopy, flexible, transoral; with endoscopic ultrasound examination limited to the esophagus, stomach or duodenum, and adjacent structures Diagnosis Code(s): --- Professional --- K76.6, Portal hypertension K31.89, Other diseases of stomach and duodenum Q45.3, Other congenital malformations of pancreas and pancreatic duct CPT copyright 2020 [employer]. All rights reserved. Attending Participation: I was present and participated during the entire procedure from insertion to removal of the endoscope. Scope In: 9:49:16 AM Scope Out: 10:17:10 AM MD Brian Dahl MD 10/24/2023 10:27:51 AM This report has been signed electronically by Brian Crow MD Number of Addenda: 0 Note Initiated On: 10/24/2023 7:49 AM [facility] Telephone Encounter - Boyd Mon MD - 08/30/2023 4:53 PM ESTTelephone Encounter - Norah Cruz - 08/30/2023 12:11 PM EST Note Date & Type Note Facility 08-30-2023 Miscellaneous Notes Formattin g of this note might be different from the original. Schedulers, please call patient to arrange: EUS with any provider Boyd Mon MD Referral for a EUS has been uploaded under scanned doc. Would you like a consult first? Norah Cruz Basket Mender documented in this encounter [facility] Evaluation note Note Date & Type Note Facility documented in this encounter [facility] Reason for referral (narrative) Outpatient Procedure (Routine) - Pending Review Note Date & Type Note Facility Referral ID Status Reason Start Date Expiration Date Visits Requested Visits Authorized [id number] Pending Review Auto-Generat ed Referral 3 08/30/2024 1 1 [facility] Summary Purpose Family History No Family History Records Found Advance Directives No Advanced Directives Records Found Additional Source Comments Source Comments (unrecognize d section and content) In the event this informatio n is protected by the Federal Confidentiality of Alcohol and Drug Abuse Patient Records regulations: The Federal rules restrict any use of the information to criminally investigate or prosecute any alcohol or drug abuse patient.[facility] Reason for Visit (unrecogniz ed section and content) INFORMATION SOURCE (unrecogn ized section and content) FOR RECORDS PERTAINING TO PATIENTS WHO ARE OR HAVE BEEN ENROLLED IN A CHEMICAL DEPENDENCY/SUBSTANCEABUSE PROGRAM, SOME INFORMATION MAY BE OMITTED. This clinical summary was aggregated from multiple sources. Caution should be exercised in using it in the provision of clinical care. This summary normalizes information from multiple sources, and as a consequence, information in this document may materially change the coding, format and clinical context of patient data. In addition, data may be omitted in some cases. CLINICAL DECISIONS SHOULD BE BASED ON THE PRIMARY CLINICAL RECORDS. [facility]. provides no warranty or guarantee of the accuracy or completeness of information in this document.
== END | disposition home or self-care (01) ==
PROVIDERS: Referring Provider Obstetrics & Gynecology; Visit Provider Obstetrics & Gynecology
DX: Z12.31 Encounter for screening mammogram for malignant neoplasm of breast (principal)
CPT/HCPCS: 77063; 77067

== ENCOUNTER → 2023-12-02 | Outpatient (CLI) | payer BC, SELFPAY ==
--- NOTE | 2023-12-02 17:02 | CT_ITS ---
STUDY: CT ABDOMEN AND PELVIS WITH CONTRAST REASON FOR EXAM: Female, 58 years old. Abdominal mass RADIATION DOSAGE (If Supplied By Facility): CTDIvol = ( 18.53 ) mGy, DLP = ( 1268.03 ) mGycm TECHNIQUE: Transaxial images were obtained from the dome of the diaphragm to the symphysis pubis with oral contrast. Oral and amp; IV Readi-CAT and amp; 100mL Isovue-370 was administered. Sagittal and coronal images were reconstructed. Individualized dose optimization techniques were used for this CT. COMPARISON: None. FINDINGS: The visualized lung bases are unremarkable. Coronary artery calcification. Diffuse fatty infiltration of the liver. There are multiple gallstones. Normal spleen. Normal pancreas. Normal bilateral adrenal glands. Normal right kidney. Normal left kidney. Normal visualized stomach. Normal small intestine. Normal colon. The appendix is visualized and appears normal. There is scattered atherosclerotic calcification of the abdominal aorta, without a demonstrated aneurysm. Normal inferior vena cava. Normal retroperitoneum. Normal urinary bladder. There is a 12.4 cm x 10.8 cm x 15.5 cm soft tissue mass arising from the pelvis and extending into the lower abdomen. This appears to be part of the uterus suggestive of a large pedunculated fibroid. Normal abdominal wall. There are degenerative changes of the visualized lumbar spine. CT/Abdomen/Pelvis WITH Contrast IMPRESSION: Large pelvic and abdominal mass in the central abdomen suggestive of an enlarged pedunculated fibroid. Fatty infiltration of the liver. Gallstones. Electronically Signed: Bert Mitchell MD at 9:28 EST ,
[2023-12-02 17:22] LABS: CREATININE FINGERSTICK 1.1 mg/dL (0.55-1.02)
--- OUTSIDE RECORDS SUMMARY | 2023-12-03 00:12 | XMS RPT_ITS | CCD ---
Author Name Unknown Address [address] [place] [address] Organization [facility] Care Team Providers Care Oil Producer Name Role Phone Nata Carrillo MD Unavailable Nel Monroy PA-C Unavailable [phone] Unavailable Primary Care Provider UnavailBoyd Rahman Referring Unavailable POLLY LAURA Attending Unavailable Allergies Allergy Classification Reported Allergen(s) Allergy Type Date of Onset Reaction(s) Facility (2 sources) Amoxicillin; Translations: [AMOXICILLIN] Drug Allergy 10-11-2005 Diarrhea [facility] Work Phone: (2 sources) Azithromycin; Translations: [AZITHROMYCIN] Drug Allergy 10-11-2005 [facility] Work Phone: (2 sources) Latex; Translations: [LATEX] Propensity to adverse reactions 10-11-2005 [facility] Work Phone: (2 sources) Fragrances; Translations: [FRAGRANCES] Propensity to adverse reactions 10-11-2005 [facility] Work Phone: Medications Completed/Discontinued Medications Medication Drug [...] Start: 10-24-2023 End: 10-24-2023 ambulatory Boyd Mon Facility:[facility] Start: 08-30-2023 Telephone encounter Boyd Desai MD Work Phone: Gastroenterology Procedures Date Procedure Procedure Detail Performing Clinician Start: 06-12-2007 Lipid 1996 panel - S evonne or Plasma Boyd Mon MD Work Phone: Plan of Treatment Date Care Activity Detail Author Start: 06-07-2023 Influ[facility] Start: 10-07-2022 Depression Assessment Depression Assessment [facility] Start: 01-11-2021 HPV Testing HPV Testing [facility] Start: 01-11-2021 Pap Testing Pap Testing [facility] Start: 03-06-2018 Mammography Mammogram Screening [facility] Start: 09-09-2017 End: 09-09-2017 Appointment Appointment [facility] Work Phone: Start: 08-15-2017 End: 08-15-2017 Colonoscopy flx dx w/collj spec when pfrmd Colonoscopy [facility] Work Phone: Start: 2016 Shingrix Vaccine (1 of 2) Shingrix Vaccine (1 of 2) [facility] Start: 06-12-2012 Lipid 1996 panel - Serum or Plasma Lipid Screening [facility] Start: 03-16-2012 Diabetes Screening Diabetes Screening [facility] Start: 2011 Cologuard (FIT-DNA) Cologuard (FIT-DNA) [facility] Start: 2011 Colonoscopy Colonoscopy [facility] Start: 2011 Colorectal Cancer Screening Colorectal Cancer Screening [facility] Start: [address] Colonography [facility] Start: 2011 Fecal Occult Blood Fecal Occult Blood [facility] Start: 2011 Sigmoidoscopy Sigmoidoscopy [facility] Start: 1985 Urine microalbumin profile DTaP,Tdap,Td Vaccine (1 - Tdap) [facility] Start: 1984 Hepatitis C Screening Hepatitis C Screening [facility] Start: 1984 HIV Screening HIV Screening [facility] Start: 04-07-1967 Covid-19 Vaccine (#1) Covid-19 Vaccine (#1) [facility] Start: 1965 Hepatitis B Vaccine (1 of 3 - 3-dose series) Hepatitis B Vaccine (1 of 3 - 3-dose series) [facility] End: 08-30-2024 EGD - THERAPEUTIC, EUS, OR TUBE INTERVENTIONS EGD - THERAPEUTIC, EUS, OR TUBE INTERVENTIONS Endoscopy Routine Subepithelial gastric lesion 1 Occurrences starting 08/30/2023 until 08/30/2024 [facility] Work Phone: Payers Date Payer Category Payer Unknown [employer] BLUE CARD PPO OOS [id number] 2014-Present [phone] [address] [place] [address] PPO [id number] 2014 Unknown [id number] Social History Date Type Detail Facility [facility]: [facility]-12-2016 [facility] Work Phone: Start: 01-12-2016 Tobacco use and exposure Smokeless tobacco non-user [facility] Work Phone: Start: 03-06-2017 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 Clinical Note 10-24-2023 Note Date & Type Note Facility 10-24-2023 Note Q3 Patient Name: Karis Regalado Procedure Date: 10/24/2023 7:49 AM Date of : 1965 Admit Type: Outpatient Age: 58 Gender: Female Note Status: Finalized Attending MD: Brian Crow MD, [id number] Procedure: Upper EUS Indications: Gastric deformity on [...] referring physician. Procedure Code(s): --- Professional --- 61046, Esophagogastroduodenoscopy, flexible, transoral; with endoscopic ultrasound examination limited to the esophagus, stomach or duodenum, and adjacent structures Diagnosis Code(s): --- Professional --- K76.6, Portal hypertension K31.89, Other diseases of stomach and duodenum Q45.3, Other congenital malformations of pancreas and pancreatic duct CPT copyright 2020 [employer]. All rights reserved. Attending Participation: I was present and participated during the entire procedure from insertion to removal of the endoscope. Scope In: 9:49:16 AM Scope Out: 10:17:10 AM MD Brian Dahl MD 10/24/2023 10:27:51 AM This report has been signed electronically by Brian Crow MD Number of Addenda: 0 Note Initiated On: 10/24/2023 7:49 AM [facility] Telephone Encounter - Boyd Mon [...] you like a consult first? Norah Cruz Tubing Tester documented in this encounter [facility] Evaluation note Note Date & Type Note Facility documented in this encounter [facility] Reason for referral (narrative) Outpatient Procedure (Routine) - Pending Review Note Date & Type Note Facility Referral ID Status Reason Start Date Expiration Date Visits Requested Visits Authorized [id number] Pending Review Auto-Generat ed Referral 3 08/30/2024 1 1 [facility] Summary Purpose Family History No Family [...] or prosecute any alcohol or drug abuse patient.[facility] Reason for Visit (unrecogniz ed section [...] BE BASED ON THE PRIMARY CLINICAL RECORDS. [facility]. provides no warranty or guarantee of the accuracy or completeness of information in this document.
== END | disposition home or self-care (01) ==
PROVIDERS: Referring Provider Obstetrics & Gynecology; Visit Provider Obstetrics & Gynecology
DX: R19.00 Intra-abdominal and pelvic swelling, mass and lump, unspecified site (principal)
CPT/HCPCS: 74177; Q9967

== ENCOUNTER → 2023-12-26 | Outpatient (CLI) | payer BC, SELFPAY ==
--- NOTE | 2023-12-26 08:18 | MRI_ITS ---
EXAM: MR PELVIS WITHOUT AND WITH INTRAVENOUS CONTRAST CLINICAL INDICATION: pelvic mass TECHNIQUE: Multiplanar and multisequence MR images of the pelvis without and with intravenous contrast. CONTRAST: IV 19ml Clariscan COMPARISON: No relevant prior studies available. FINDINGS: INTRAPERITONEAL SPACE: Small amount of free fluid within the peritoneal cavity located within the cul-de-sac and superior to the urinary bladder. BLADDER: Urinary bladder is contracted. OVARIES: Neither ovary is clearly identified. UTERUS/CERVIX: 15.5 x 14.6 x 10.4 cm solid mass noted to arise from the uterine fundus consistent with fibroid. Normal endometrial cavity. Multiple small nabothian cysts are present. BONES/JOINTS: Normal. SOFT TISSUES: Normal. No pelvic wall hernia. LYMPH NODES: Normal. No enlarged lymph nodes. MRI/Pelvis W/WO Contrast IMPRESSION: Large abdominal mass consistent with exophytic uterine fibroid. Electronically Signed: Ramesh Whitfield MD at 9:16 EDT ,
== END | disposition home or self-care (01) ==
LOC: MRI 08:09
PROVIDERS: PCP Internal Medicine; Referring Provider Obstetrics & Gynecology; Visit Provider Obstetrics & Gynecology
DX: R19.00 Intra-abdominal and pelvic swelling, mass and lump, unspecified site (principal)
CPT/HCPCS: 72197; A9575

== ENCOUNTER → 2024-07-10 | Outpatient (CLI) | payer BC, SELFPAY ==
[2024-07-10 15:23] LABS: Absolute Lymphocyte Count 2.76 X10^3/uL (0.83-4.51); Absolute Neutrophil Count 2.5 X10^3/uL (2.0-7.7); Basophil# 0.02 X10^3/uL; Basophil% 0.3 % (0-1); Eosinophil# 0.09 X10^3/uL; Eosinophils% 1.6 % (0-5); Hematocrit 41.6 % (37-47); Hemoglobin 13.5 g/dL (12.0-15.0); Lymphocyte # 2.76 X10^3/ul (0.83-4.51); Lymphocyte % 47.8 % (19-41); Mean Corp Hgb Conc 32.5 g/dL (32-36); Mean Corpuscular Hgb 29.5 pg (27.0-32.0); Mean Platelet Vol. 10.7 fl (6.2-12.0); Monocyte# 0.39 X10^3/uL; Monocyte% 6.7 % (0-10); NRBC Flagged by Analyzer 0 % (0-5); Neutrophil % 43.3 % (47-70); Platelet Count 224 K/mm3 (150-450); RBC Distribution Width CV 12.6 % (11.6-14.6); RBC Distribution Width SD 41.3 fl (35.1-43.9); Red Blood Count 4.57 M/mm3 (4.2-5.4); White Blood Count 5.8 K/mm3 (4.4-11.0)
[2024-07-10 15:59] LABS: Hemoglobin A1c 5.8 % (3.8-5.6)
[2024-07-10 16:02] LABS: ALB/GLOB Ratio 1.1 RATIO (0.9-2.4); AST(SGOT) 16 U/L (15-37); Alanine Aminotransfer ALT/SGPT 12 U/L (13-56); Alkaline Phosphatase 72 U/L (45-117); Anion Gap 4 (5-15); BUN 14 mg/dL (7-18); BUN/Creat Ratio 16.4 RATIO (10-20); Calcium,Total 9.8 mg/dL (8.5-10.1); Chloride 107 mmol/L (98-107); Cholesterol 212 mg/dL (200); Creatinine, Serum 0.85 mg/dL (0.55-1.02); EST Glomerular Filtration Rate 73 mL/min (>60); Est Glom Filt Rate - Afr Amer 88 mL/min (>60); Globulin 3.8 g/dL (2.2-4.2); Glucose 96 mg/dL (74-106); High Density Lipoprotein 60 mg/dL; Potassium 4.3 mmol/L (3.5-5.1); Protein, Total 7.8 g/dL (6.4-8.2); Sodium Level 140 mmol/L (136-145); Triglycerides 84 mg/dL; Very Low Density Lipoprotein 17 mg/dL (5-40)
== END | disposition home or self-care (01) ==
LOC: BIMLAB 13:08
PROVIDERS: PCP Internal Medicine; Referring Provider Internal Medicine; Visit Provider Internal Medicine
DX: Z13.6 Encounter for screening for cardiovascular disorders (principal); I10 Essential (primary) hypertension; R73.03 Prediabetes
CPT/HCPCS: 36415; 80053; 80061; 83036; 85025

== ENCOUNTER → 2024-11-20 | Outpatient (CLI) | payer BC, SELFPAY ==
--- NOTE | 2024-11-20 09:49 | BI_ITS ---
PROCEDURE: SCRN MAMM (CAD)W/LAZARO BILAT REASON FOR EXAM: F, Age 59 y/o, presents for annual screening mammogram. Family history of breast cancer in a paternal grandmother in her 50s. TECHNIQUE: Bilateral screening digital breast tomosynthesis with 2D and 3D images. Computer aided detection. COMPARISON: 11/18/2023, 11/09/2022 FINDINGS: The breasts are almost entirely fatty. There is a focal asymmetry in the lower-outer right breast at posterior depth. No suspicious masses, areas of developing architectural distortion, or suspicious calcifications in the left breast. BI/SCRN MAMM (CAD)W/LAZARO BILAT IMPRESSION: The focal asymmetry in the lower-outer right breast at posterior depth requires further evaluation. Recommend diagnostic mammogram, and ultrasound on the day of diagnostic if indicated. BI-RADS 0: INCOMPLETE - NEED ADDITIONAL IMAGING EVALUATION. Follow-up code: Additional Views obtained/call backs The patient will be notified of the results by letter. Reading Location: [id number]
== END | disposition home or self-care (01) ==
LOC: OPBI 09:48
PROVIDERS: PCP Internal Medicine; Referring Provider Obstetrics & Gynecology; Visit Provider Obstetrics & Gynecology
DX: Z12.31 Encounter for screening mammogram for malignant neoplasm of breast (principal)
CPT/HCPCS: 77063; 77067

== ENCOUNTER → 2024-11-26 | Outpatient (CLI) | payer BC, SELFPAY ==
--- NOTE | 2024-11-26 14:32 | BI_ITS ---
PROCEDURE: DIAG MAMM W/CAD, UNILAT REASON FOR EXAM: F, Age 59 y/o , TECHNIQUE: Bilateral screening digital breast tomosynthesis with 2D and 3D images. Exaggerated craniocaudad views and compression views of the right breast were obtained. Computer aided detection. COMPARISON: Prior exam(s) dating back to November 20, 2024.. FINDINGS: There are scattered areas of fibroglandular density. No suspicious masses, areas of developing architectural distortion, or suspicious calcifications. BI/DIAG MAMM W/CAD, UNILAT IMPRESSION: BI-RADS 0: INCOMPLETE - NEED ADDITIONAL IMAGING EVALUATION. Follow-up code: Sonographic correlation recommended. The patient will be notified of the results by letter. Reading Location: [id number]
--- NOTE | 2024-11-26 14:32 | US_ITS ---
PROCEDURE: BREAST LIMITED UNILATERAL REASON FOR EXAM: Abnormal screening mammogram. COMPARISON: Comparison is made with prior mammogram dated November 26, 2024. TECHNIQUE: Targeted right breast ultrasound. FINDINGS: RIGHT: Ultrasound targeted to the lateral inferior aspect of the right breast. There is a 2.3 cm x 1.1 cm x 1 cm benign-appearing lymph node at the 8 o'clock position of the right breast at 20 cm from the nipple. US/Breast Limited Unilateral IMPRESSION: Benign-appearing lymph node measuring 2.3 cm x 1.1 cm x 1 cm at the 8 o'clock p osition of the breast at 20 cm from the nipple. BI-RADS 2: BENIGN. RECOMMEND ANNUAL MAMMOGRAPHIC SCREENING. Reading Location: [place] [id number]
== END | disposition home or self-care (01) ==
PROVIDERS: PCP Internal Medicine; Referring Provider Obstetrics & Gynecology; Visit Provider Obstetrics & Gynecology
DX: N64.89 Other specified disorders of breast (principal)
CPT/HCPCS: 76642; 77065

== ENCOUNTER → 2025-01-05 | Outpatient (CLI) | payer BC, SELFPAY ==
[2025-01-05 15:36] LABS: Absolute Lymphocyte Count 2.76 X10^3/uL (0.83-4.51); Absolute Neutrophil Count 2.6 X10^3/uL (2.0-7.7); Basophil# 0.02 X10^3/uL; Basophil% 0.3 % (0-1); Eosinophil# 0.09 X10^3/uL; Eosinophils% 1.5 % (0-5); Hematocrit 40.1 % (37-47); Hemoglobin 13.1 g/dL (12.0-15.0); Lymphocyte # 2.76 X10^3/ul (0.83-4.51); Mean Corp Hgb Conc 32.7 g/dL (32-36); Mean Corpuscular Hgb 29.2 pg (27.0-32.0); Mean Corpuscular Volume 89.5 fL (81-99); Mean Platelet Vol. 10.7 fl (6.2-12.0); Monocyte# 0.34 X10^3/uL; Monocyte% 5.8 % (0-10); NRBC Flagged by Analyzer 0 % (0-5); Neutrophil # 2.64 X10^3/uL (2.7-7.7); Neutrophil % 45.1 % (47-70); Platelet Count 223 K/mm3 (150-450); RBC Distribution Width SD 41.9 fl (35.1-43.9); Red Blood Count 4.48 M/mm3 (4.2-5.4); White Blood Count 5.9 K/mm3 (4.4-11.0)
[2025-01-05 17:49] LABS: ALB/GLOB Ratio 1.7 RATIO (0.9-2.4); AST(SGOT) 20 U/L (<=31); Alanine Aminotransfer ALT/SGPT 24 U/L (<=34); Albumin, Serum 4.6 g/dL (3.5-5.0); Alkaline Phosphatase 70 U/L (35-104); Anion Gap 12 (5-15); BUN 15 mg/dL (4-19); BUN/Creat Ratio 19.3 RATIO (10-20); Calcium,Total 9.6 mg/dL (7.6-11.0); Carbon Dioxide 25.6 mmol/L (21.0-32.0); Chloride 106 mmol/L (98-108); Creatinine, Serum 0.76 mg/dL (0.70-1.20); EST Glomerular Filtration Rate 91 (>60); Globulin 2.7 g/dL (2.2-4.2); Glucose 97 mg/dL (70-99); Iron 81 ug/dL (50-170); Iron Binding Capacity,Total 258 ug/dL (250-450); Iron Binding Capacity,Unsat 177 ug/dL (228-428); Magnesium 1.9 mg/dL (1.5-2.2); Potassium 4.5 mmol/L (3.3-5.1); Protein, Total 7.2 g/dL (5.9-8.4); Sodium Level 144 mmol/L (133-145); Total Bilirubin 0.31 mg/dL (0.00-1.30); Vitamin D,25 Hydroxy 44.8 ng/mL (30-100)
== END | disposition home or self-care (01) ==
LOC: BIMLAB 11:44
PROVIDERS: PCP Internal Medicine; Referring Provider Internal Medicine; Visit Provider Internal Medicine
DX: R25.2 Cramp and spasm (principal)
CPT/HCPCS: 36415; 80053; 82306; 83540; 83550; 83735; 85025

== ENCOUNTER → 2025-01-20 | Outpatient (CLI) | payer BC, SELFPAY ==
[2025-01-20 13:30] LABS: Bacteria 0 SEEN /hpf (None Seen)
[2025-01-20 16:27] LABS: Color, Urine Yellow (Yellow); Glucose, Dipstick Normal (Normal); Ketone-Dipstick Negative (Negative); Leukocyte Esterase-Dipstick Negative /ul (Negative); Nitrite-Dipstick Negative (Negative); Occult Blood-Urine Negative /ul (Negative); Protein-Dipstick 15 mg/dl (Negative); Urine Bilirubin Dipstick Negative (Negative); Urine Clarity Clear (Clear); Urine Urobilinogen Normal (Normal)
[2025-01-20 20:26] LABS: Mucous, Urine 1+ /hpf (<or=2+); Red Blood Cells-Urine 0-5 SEEN /hpf (0-5); White Blood Cells 0-5 SEEN /hpf (0-5)
[2025-01-20 20:27] LABS: Squamous Epithelial Cells - UA 10-25 SEEN /hpf (5-10)
== END | disposition home or self-care (01) ==
LOC: LABSPEC 13:30
PROVIDERS: PCP Internal Medicine; Referring Provider Internal Medicine; Visit Provider Internal Medicine
DX: M54.9 Dorsalgia, unspecified (principal)
CPT/HCPCS: 81001

== ENCOUNTER → 2025-01-28 | Outpatient (CLI) | payer BC, SELFPAY ==
--- NOTE | 2025-01-28 10:00 | US_ITS ---
PROCEDURE: LIVER 01/28/2025 REASON FOR EXAM: BACK PAIN, GALLSTONES FINDINGS: Liver: Diffusely echogenic suggesting fatty infiltration. Gallbladder: Multiple echogenic gallstones are identified. Common bile duct: Normal measuring 4 mm. Pancreas: 1 cm round hypoechoic mass within the neck of the pancreas anterior to the portal vein confluence and correlation with pancreas protocol CT is recommended. Other: US/Liver IMPRESSION: Cholelithiasis. Fatty infiltration of the liver. 1 cm hypoechoic mass of the neck of the pancreas and correlation with pancreas protocol CT is recommended. Reading Location: [id number]
== END | disposition home or self-care (01) ==
PROVIDERS: PCP Internal Medicine; Referring Provider Internal Medicine; Visit Provider Internal Medicine
DX: K80.20 Calculus of gallbladder without cholecystitis without obstruction (principal); M54.9 Dorsalgia, unspecified
CPT/HCPCS: 76705

== ENCOUNTER → 2025-02-15 | Outpatient (CLI) | payer BC, SELFPAY ==
--- NOTE | 2025-02-15 13:08 | CT_ITS ---
PROCEDURE: ABDOMEN WITH IV CONTRAST 02/15/2025 REASON FOR EXAM: PANCREATIC MASS TECHNIQUE: Abdomen CT with intravenous contrast. Multiplanar and multisequence images were obtained. One or more dose reduction techniques were used (e.g., Automated exposure control, adjustment of the mA and/or kV according to patient size, use of iterative reconstruction technique. PATIENT PREPARATION: Per protocol ORAL CONTRAST TYPE: Given. CONTRAST: 100 cc of Isovue-300 RADIATION DOSE SUMMARY: CTDlvol: 14.5 mGy DLP: 792.24 mGycm COMPARISON: Comparison is made with prior study dated December 02, 2023. FINDINGS: Lung bases: Lung bases are clear. Coronary artery calcification. Liver: Diffuse fatty infiltration. Gallbladder: Several calcified gallstones. Spleen: Normal size. Pancreas: Normal size without evidence of mass surrounding inflammation or ductal dilation. No pancreatic mass is seen. There is suggestion of a 10.7 mm fatty nodule adjacent to the lateral aspect of the celiac artery caudad to the body of the pancreas. This may represent a lipoma. Adrenals: Unremarkable Kidneys: Normal renal sizes. No hydronephrosis. Bowel: Unremarkable Lymph nodes: Unremarkable Vasculature: Unremarkable Peritoneum / Retroperitoneum: Unremarkable Bones: Degenerative changes of the spine. CT/Abdomen WITH IV Contrast IMPRESSION: No pancreatic mass is seen. Suggestive of a 10.7 mm fatty nodule adjacent to the celiac artery suggestive o f a possible small lipoma. OVERALL FINAL ASSESSMENT: . LI-RADS is not meant to be used in patients <18 years or patients with cirrhosi s due to congenital hepatic fibrosis or due to vascular disorders, because these patients have a lower chance of developing HC C. Reading Location: [facility]
== END | disposition home or self-care (01) ==
PROVIDERS: PCP Internal Medicine; Referring Provider Internal Medicine; Visit Provider Internal Medicine
DX: K86.89 Other specified diseases of pancreas (principal)
CPT/HCPCS: 74160; Q9967; A4216

== ENCOUNTER 2025-03-19 09:31 | Day surgery (SDC) | payer BC, SELFPAY ==
[2025-03-19] VITALS (13 sets, daily range): BP systolic 103–146; BP diastolic 54–77; PULSE 67–89; RESP 16; TEMP 36.1–37.2; O2SAT 92–100; BMI 42.3
--- NOTE | 2025-03-19 09:39 | HP.PCM_ITS ---
History and Physical Date of Admission: 03/19/25 Date of Service: 02/26/25 MR#: [id number] Acct: [id number] Name: KARIS VASQUEZ Rep #: [id number] : 1965 Provider: Dr. 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 Is patient in pain?: No Allergies Food Allergies: Uncoded Allergy (Severe, Verified 02/26/25 09:21) Anaphylaxislatex Allergy (Verified 02/26/25 09:21) Swellinggarlic Adverse Reaction (Mild, Verified 02/26/25 09:21) Other Medications ?Medication ?Instructions ?Recorded ?Confirmed ?Type loratadine 10 mg tablet 10 mg PO DAILY 09/12/14 02/26/25 History multivitamin with folic acid 400 1 tab PO DAILY 09/12/14 02/26/25 History mcg tablet cholecalciferol (vitamin D3) 50 50 mcg PO QDAY 11/20/24 02/26/25 History mcg (2,000 unit) capsule cyclobenzaprine 5 mg tablet 5 mg PO QHS PRN muscle spasm #20 5 02/26/25 Rx tabs pantoprazole 20 mg tablet,delayed 20 mg PO Q OTHER DAY #90 tabs 12/24/24 02/26/25 Rx release probiotic PO 12/24/24 02/26/25 History lisinopril 20 mg tablet 20 mg PO DAILY #90 tabs 01/03/25 5 Rx Have you fallen in the past year?: No PFSH Medical History (Updated 02/26/25 @ 11:[address] 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 Uterine fibroid Essential hypertension Seasonal allergies Abnormal uterine bleeding Hypertension Basal cell carcinoma Surgical History H/O: hysterectomy H/O Mohs micrographic surgery for skin cancer History of esophagogastroduodenoscopy (EGD) History of tonsillectomy and adenoidectomy delivery delivered Family History Father Lung cancer Heart disease HypertensionMother Lung cancer Alzheimer diseaseSister Fibroid Hypertension Social History household members: spouse housing: house number of children: 2 current occupational status: employed current occupation: [employer] Smoking Status: Never smoker Electronic Cigarette Use: not used alcohol intake: never substance use type: does not use caffeine: No what type of physical activity do you participate in: walking frequency: 1-2 times per week seatbelt use: always do you feel safe at home: Yes 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 Patient states mainly right back pain but occasionally wraps around to the front. Patient states longest last about 40 minutes happens a couple hours after eating. Patient has tried avoiding any fatty or greasy foods. Patient states this started about a year ago but has gotten worse in the last couple months. Patient has known gallstones from previous imaging?CT as well as ultrasound last year in January patient did have a large leiomyoma/hysterectomy removed by Dr. Verdugo. ROS General General: No weight change, appetite, fatigue, colon cancer, breast cancer or weakness HEENT HEENT: No difficulty swallowing, eye injury, eye surgery, swollen glands or hoarseness Endo Endocrine: No thyroid disease, diabetes mellitus, thyroid cancer, Hair loss, heat intolerance or cold intolerance Skin Skin: No rash or changing moles Breast Breast: No left breast lump, right breast lump, nipple discharge, breast pain, abnormal mammogram, abnormal US or breast enlargement Musc Musculoskeletal: Yes back problems; No arthritis, rheumatoid arthritis, gout or joint pain Cardio Cardiovascular: Yes high blood pressure; No murmur, pacemaker, heart disease, atrial fibrillation, heart attack, heart stent, palpitations, shortness of breath with exertion or chest pain Psych Psychiatric: No depression, anxiety or hearing voices Resp Respiratory: No shortness of breath, Yes sleep apnea, No cough, No COPD, No asthma, No emphysema and No wheezing Gastro Gastrointestinal: No abdominal pain, No nausea or vomiting, No diarrhea, No constipation, No blood in stool, Yes acid reflux, Yes hemorrhoids, No ulcers, Yes gallbladder problem and No black,tarry stools Timothy Hematologic: No blood thinners, No blood disorders, No bleeding, No anemia and No blood clots Neuro Neurologic: No system reviewed and no additional complaints, except as documented, No as per HPI, No abnormal gait, No abnormal hearing, No abnormal movements, No abnormal speech, No behavioral changes, No burning sensations, No confusion, No convulsions, No disequilibrium, No dizziness, No localized weakness, No frequent falls, No headache(s), No lack of coordination, No loss of vision, No memory loss, No numbness, No other visual disturbances, No radicular pain, No restless legs, No sensory deficit, No syncope, No tingling, No tremor(s), No weakness and No other Exam Const General: cooperative, healthy appearing, comfortable and no acute distress HENWA Head: normocephalic and atraumatic Neck Neck: supple Resp Effort & Inspection: normal respiratory effort Cardio Rate: regular rate GI Inspection: non-distended Palpation: soft and nontender Other: Well-healed lower midline incision Skin General: no rashes or lesions noted Neuro General: CN's II-XI intact bilaterally Extrem General: normal to inspection Psych Mental Status: mental status grossly normal Attitude: cooperative Assessment and Plan Assessment and Plan (1) Multiple gallstones: (2) Right-sided back pain: Status: Acute Comment: upper (3) RUQ abdominal pain: Status: Acute Plan Patient symptoms are related with eating and food thus I do think even her right back pain could be due to her gallbladder. Reviewed the anatomy with the patient and discussed the procedure: laparoscopic cholecystectomy with possible cholangiograms, possible open. Review risks including but not limited to bleeding, infection, hernia, bile leak, retained gallstones requiring another procedure ERCP- Endoscopic Retrograde Cholangiopancreatography, injury to another organ (bile ducts, common bile duct, small bowel, etc.) and conversion to an open procedure. All questions were answe red. Nata Carrillo M.D. Pager: [phone] [facility] [address] [place] [address], [facility], [address] [place] [address] Office: [phone] Coding Level of Care Code Off vis,new,level 3 Diagnoses Multiple gallstones K80.20 Right-sided back pain M54.9 RUQ abdominal pain R10.11 Clinical Quality Measures Falls Risk Screening/Assistive Devices Have you fallen in the past year?: No 02/26/25 1151 <Electronically signed by Nata Carrillo MD> Date Nata Carrillo MD
[2025-03-19] MEDS: Lactated Ringers 1,000 ML 15 ML IV (09:57)
--- NOTE | 2025-03-19 10:19 | PCM.PRE.AN2 ---
ASA Classification* ASA Classification ASA Classification: 2 Assessment & Plan Anesthesia* Anesthesia Assessment Anesthesia Assessment: Discussed sedation and/or anesthesia options, risks, benefits, and alternatives with patient/parents/legal guardian/POA. Questions invited. The patient/parents/legal guardian/POA seems to understand and agrees to proceed with anesthesia plan. Reviewed the physical assessment, medical history, allergy history and patient home medications list prior to surgery/procedure/anesthetic and documented any changes. Performed airway and anesthesia risk assessments. Anesthesia Type Anesthesia Type: General Anesthesia Focused Assessment* Temperature: 98.9 F Pulse Rate: 77 Blood Pressure: 146/68 Respiratory Rate: 16 Pulse Ox: 100 Airway Assessment Mouth opens: >3 cm Mallampati Score: II Labs Anesthesia Preop lab: CBC WBC 5.9 K/mm3 (4.4-11.0) 01/05/25 11:44 01/05/25 RBC 4.48 M/mm3 (4.2-5.4) 01/05/25 11:44 01/05/25 Hgb 13.1 g/dL (12.0-15.0) 01/05/25 11:44 01/05/25 Hct 40.1 % (37-47) 01/05/25 11:44 01/05/25 Plt Count 223 K/mm3 (150-450) 01/05/25 11:44 01/05/25 CHEMISTRY Potassium 4.5 mmol/L (3.3-5.1) 01/05/25 11:44 01/05/25 Sodium 144 mmol/L (133-145) 01/05/25 11:44 01/05/25 Magnesium 1.9 mg/dL (1.5-2.2) 01/05/25 11:44 01/05/25 BUN 15 mg/dL (4-19) 01/05/25 11:44 01/05/25 Creatinine 0.76 mg/dL (0.70-1.20) 01/05/25 11:44 01/05/25 Glucose 97 mg/dL (70-99) 01/05/25 11:44 01/05/25 TSH 1.24 uIU/mL (0.358-3.74) 01/13/21 11:45 01/13/21 COAG Urine Test Negative Negative 09/09/17 07:20 09/09/17 Pre-Assessment Diagnosis/Proposed Procedure Planned Operative Procedure(s): LAP SIRENA W/ IOC Anesthesia History 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 When Was Last Pacemaker Check QUESTION #4 FULL TEXT: You/Your Family Experience fever (hyperthermia) with Anesthesia Last Oral Intake Last Oral intake: Last Oral Intake NPO since Meds taken in AM with sips of water? Meds patient instructed to take am of surgery PONV PONV - production line solderer: PONV - production line solderer Female Yes 03/08/25 15:45 HX of Motion Sickness No 03/08/25 15:45 HX of N/V After Surgery No 03/08/25 15:45 Non-Smoker Yes 03/08/25 15:45 Duration of Surgery greater Yes 03/08/25 15:45 than 60 minutes Number of Risk Factors 3 03/08/25 15:45 PONV Score Moderate Risk 03/08/25 15:45 Height & Weight Height & Weight: Anesthesia: Height & Weight Height 4 ft 11 in 03/19/25 09:47 Weight: 95 kg 03/19/25 09:47 Body Mass Index (BMI) 42.3 03/19/25 09:47 Respiratory Assessment Respiratory Assessment - production line solderer: Respiratory Tract Infection Hx - production line solderer Hx Respiratory Tract Infection No 03/08/25 15:45 STOP Sleep Apnea STOP Sleep Apnea - production line solderer: STOP Sleep Apnea - production line solderer Hx Hypertension Yes: CONTROLLED on 03/08/25 15:45 medication Hx Sleep Apnea No 03/08/25 15:45 CPAP Yes 03/08/25 15:45 BIPAP No 03/08/25 15:45 Do you snore loudly (louder No 03/08/25 15:45 than talking or can be heard Do you often feel tired/ No 03/08/25 15:45 fatigued/ sleepy during daytime? Has anyone observed you stop No 03/08/25 15:45 breathing during sleep? STOP Results Negative 03/08/25 15:45 QUESTION #5 FULL TEXT : Do you snore loudly (louder than talking or can be heard through closed doors)? Tobacco Use History Tobacco Use History - production line solderer: Tobacco Use History - production line solderer Tobacco Use Smoking Status Never smoker 03/08/25 15:45 Hx Tobacco Use No 03/08/25 15:45 Years Smoking Packs Smoked per Day Smoking Cessation Date was within the last 15 years Hx Smoking Cessation Date Hx Smoking Cessation Counseling Hematologic Medial History Hematologic Hx - production line solderer: Hematologic Medical Hx - parcel post delivery Hx of Blood Transfusion No 03/08/25 15:45 Hx of Transfusion in last 3 No 03/08/25 15:45 Months Date of Last Transfusion (if within last 3 months) Ever experience any problems No 03/08/25 15:45 with transfusion(s)? Specify any problems Hx of Preganancy in last 3 No 03/08/25 15:45 Months Nurse Filling Out Transfusion VCHRISTIN 03/08/25 15:45 & Questions: Date: 03/08/25 03/08/25 15:45 Time: 15:46 03/08/25 15:45 Patient unable to answer at this time (ie. confused, unrespo /Reproduction History /Reproductive History - production line solderer: /Reproductive Hx- production line solderer Hx Now No 03/08/25 15:45 Gestational Age (in weeks): EDC: Hx Hx Para Hx Section SAB No 03/08/25 15:45 Active Medications Active Medications: Current Medications Generic Name Dose Route Start Last Admin Trade Name Freq PRN Reason Stop Dose Admin Cefazolin Sodium 2 gm/ Sodium 110 mls @ 150 mls/hr 03/19/25 11:00 Chloride IV 03/19/25 11:43 INTRAOP ONE Lactated Ringer's 1,000 mls @ 15 mls/hr 03/19/25 09:45 03/19/25 09:57 IV 15 mls/hr .Q48H ROCKY Administration PFSH Medical History Post-menopausal Cancer Back pain Gastric reflux Non-smoker CPAP (continuous positive airway pressure) dependence Sleep apnea Seasonal allergies Essential hypertension Uterine fibroid 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 Abnormal uterine bleeding Vaginal Pap smear with ASC-US Hypertension Basal cell carcinoma Home Medications ?Medication ?Instructions ?Recorded ?Last Taken ?Type loratadine 10 mg tablet 10 mg PO DAILY 09/12/14 Unknown History multivitamin with folic acid 400 1 tab PO DAILY 09/12/14 Unknown History mcg tablet cholecalciferol (vitamin D3) 50 50 mcg PO QDAY 11/20/24 Unknown History mcg (2,000 unit) capsule pantoprazole 20 mg tablet,delayed 20 mg PO Q OTHER DAY #90 tabs 12/24/24 03/19/25 Rx release lisinopril 20 mg tablet 20 mg PO DAILY #90 tabs 01/03/25 03/19/25 Rx Lactobacillus acidophilus 10 100 mmu cells PO DAILY 03/08/25 03/19/25 History billion cell capsule ([employer]Flora) cyclobenzaprine 5 mg tablet 5 mg PO QHS PRN muscle spasm #20 03/16/25 Unknown Rx tabs Allergy/AdvReac Type Severity Reaction Status Date / Time Food Allergies: Uncoded Allergy Severe Anaphylaxis Verified 03/19/25 09:47 latex Allergy Swelling Verified 03/19/25 09:47 garlic AdvReac Mild Other Verified 03/19/25 09:47 Family History Father Lung cancer Heart disease Hypertension Mother Lung cancer Alzheimer disease Sister Fibroid Hypertension Surgical History Hx of eye surgery Hx of colonoscopy H/O: hysterectomy H/O Mohs micrographic surgery for skin cancer History of esophagogastroduodenoscopy (EGD) History of tonsillectomy and adenoidectomy delivery delivered Social History household members: spouse housing: house number of children: 2 current occupational status: employed current occupation: [employer] Smoking Status: Never smoker Electronic Cigarette Use: not used alcohol intake: never substance use type: does not use caffeine: No what type of physical activity do you participate in: walking frequency: 1-2 times per week seatbelt use: always do you feel safe at home: Yes 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
[2025-03-19] MEDS: Cefazolin 2 GM in 0.9% Normal Saline (100mL Bag) 100 ML IV (10:56)
--- NOTE | 2025-03-19 11:00 | GALL_PTH ---
PATIENT: KARIS VASQUEZ LOC: [facility] U#:[id number] AGE/SX: 59/F ROOM: RE03/19/[address]: Dr. Nata Carrillo MD : 1965 BED: DIS: 03/19/2025 SPEC #: [id number] RECD: 03/19/25 13:04 STATUS: NAOMY SHEREE #: [id number] SEAMUS: 03/19/25 11:[address]: Nata Carrillo DEPT: SURGICAL PATHOLOGY RECD BY: Ian Arciniega ENTERED: 03/19/25 13:26 SP TYPE: GENOVEVA LIVINGSTON DR: Dr. Rosi Hood MD Tissues: A - Gallbladder, NOS Procedures: Surgery Specimen Level III HEADER OPERATION: Laparoscopic cholecystectomy PRE-OP DIAGNOSIS: Multiple gallstones, right-sided back pain, right upper quadrant abdominal pain TISSUE SUBMITTED: A- Gallbladder MICROSCOPIC DIAGNOSIS A. Gallbladder, cholecystectomy: * Chronic cholecystitis with cholelithiasis. MICROSCOPIC DESCRIPTION Slides are reviewed. GROSS DESCRIPTION A.? Received in formalin labeled with the patient's name and date of . Designated as gallbladder is a 7.9 x 3.9 x 1.8 cm disrupted, pink-hamlin yellow and fatty gallbladder with attached cystic duct (inked black, shaved).? The mucosa is red and granular with a maximum wall thickness of 0.3 cm.? Cholesterolosis is not grossly identified.? Within the container are multiple irregular bile-stained choleliths, 0.1 to 4.9 cm.? Metal Casket Maker sections are submitted in 1 cassette. ? CLARI 03/19/2025 CPT:62953
[2025-03-19] MEDS: Bupivacaine Mpf 0.5% 30 ML VIAL (11:29)
--- NOTE | 2025-03-19 12:35 | PCM.OPRPT ---
Operative Report (Standard) Operative Information Date of Procedure: 03/19/25 Pre-Operative Diagnosis: Right upper quadrant pain, cholelithiasis Post-Operative Diagnosis: Same Surgery/Procedure Performed: Laparoscopic cholecystectomy sales representative uniforms: Yes Plastics Patternmaker: Kenan Barclay Tasks completed by clinical services assistant: Opening & closing and Retracting Type of Anesthesia: General/Supplemental RN Documented Start/Stop Times: Operation Date: 03/19/25 11:00 Case Time Into Pre-Op 03/19/25 09:35 Anesthesia Start 03/19/25 10:54 Into Room 03/19/25 10:54 Procedure Start 03/19/25 11:22 Procedure End 03/19/25 12:43 Anesthesia End 03/19/25 12:48 Out of Room 03/19/25 12:48 Into Recovery 03/19/25 12:50 Procedure Start Time: 11:22 Procedure Stop Time: 12:43 Select all DRAINS/GRAFTS/IMPLANTS that apply: None Special Medications: Ancef 2 g IV x 1 Estimated Blood Loss: 10 cc Specimen collected: Yes Description of specimen(s) removed: Gallbladder and stones Description of surgery: Indications: this is a 59 year-old female who developed abdominal pain/nausea/vomiting and on workup was found to have cholelithiasis, with a normal common bile duct. Laparoscopic cholecystectomy was elected. Description procedure: The patient was placed on operating table in supine position. A timeout was completed verifying correct patient, procedure, site, position and special equipment prior to beginning procedure. General Anesthesia was induced. The abdomen was prepped and draped in usual sterile fashion. An incision was made in the natural skin line above the umbilicus. The fascia was elevated and incised. The peritoneum was elevated and incised. Entry into the peritoneum was confirmed visually and no bowel was noted in the vicinity of the incision. Torres trocar was placed. The abdomen was insufflated with carbon dioxide to a pressure of 12-15 mmHg. Patient tolerated insufflation well. The laparoscope was then inserted and abdomen inspected. No injuries from initial trocar placement were noted. Additional trochars were then inserted in the following locations 5 mm trocar in the epigastrium and 2 more 5 mm trochars along the right costal margin. The abdomen was inspected no abnormalities were found. The table is placed in reverse Trendelenburg position with the right side up. The dome of the gallbladder was grasped with atraumatic grasper passed through the lateral port and retracted over the dome of the liver. Infundibulum was then grasped with atraumatic grasper through the midclavicular port and retracted to the right lower quadrant. This maneuver exposed Calot's triangle. The peritoneum overlying the gallbladder infundibulum was then incised and cystic duct was located anterior and tenting down the gallbladder this was triply clipped and divided. The cystic artery was noted to be more posterior in the gallbladder fossa?this was also triply clipped and divided. The gallbladder then dissected from its peritoneal attachments by electrocautery. During dissection there was a tear in the gallbladder wall at this stones were removed into the endoscopic retrieval bag. Remainder of the gallbladder was dissected off the peritoneal attachments with electrocautery. Hemostasis was checked and the gallbladder and contained stones were removed using the endoscopic retrieval bag through the umbilical port?which was enlarged to accommodate the large gallstone. The gallbladder is passed off table as specimen. The gallbladder fossa was irrigated with saline and hemostasis obtained. There is no evidence of bleeding from the gallbladder fossa or cystic artery leakage of bile from the cystic duct stump. Secondary trochars removed under direct vision. No bleeding was noted the trocar sites. The laparoscope was withdrawn and umbilical trocar removed. The abdomen was allowed to collapse. The fascia of the 12 mm trocar was closed with 2 [id number] 0 Vicryl suture. The skin was closed with sutures of 4-0 Monocryl and Steri-Strips. The patient was extubated. The patient tolerated procedure well and was taken to the postanesthesia care unit in stable condition. Surgical Findings: See operative report Complications Complications: No
--- NOTE | 2025-03-19 12:40 | DCINST_ITS ---
Discharge Instructions Diet Discharge Diet: Light diet - advance as tolerated Activity Discharge Activity: May Not Drive (while taking narcotic pain medications.) May shower in (days): 1 Lifting Restrictions: no lifting >20 lbs x 2 wks, no strenuous exercise for 4 wks Dressing / Incision Call your doctor if your incision/area has: Continuous Slow Oozing, Sudden Increased Bleeding, Increased Pain/ Swelling, Increased Redness, Foul Smelling Discharge and Swelling at the incision site Call your doctor if you observe: Fever of 101 or Higher Remove Dressing in: 2 days Cleanse incision/area with: Soap & Water Additional Dressing/Incision Instructions:: Steri-Strips will fall off in 7 to 10 days, if they do not fall off okay to remove after 10 days. Follow Up Care Please Follow Up With: Nata Carrillo MD When: Call the office for a follow-up appointment 2 weeks; after 5 PM and on the weekends call [phone] with any concerns. Test Results: Test results from this visit will be discussed in further detail at your follow- up appointment, if applicable. Discharge Plan Admission Attending Provider: Nata Carrillo Primary Care Provider: Rosi Hood Instructions Print Language: Ecuadorean Discharge Orders/Prescriptions Prescriptions: New oxycodone 5 mg capsule 5 mg PO Q6H PRN (Reason: pain) 3 Days Qty: 10 0RF Continued cholecalciferol (vitamin D3) 50 mcg (2,000 unit) capsule 50 mcg PO QDAY pantoprazole 20 mg tablet,delayed release (DR/EC) 20 mg PO Q OTHER DAY Qty: 90 0RF loratadine 10 MG tablet 10 mg PO DAILY multivitamin with folic acid 1 TABLET tablet 1 tab PO DAILY NewFlora 10 billion cell capsule 100 mmu cells PO DAILY lisinopril 20 mg tablet 20 mg PO DAILY Qty: 90 1RF cyclobenzaprine 5 mg tablet 5 mg PO QHS PRN (Reason: muscle spasm) Qty: 20 0RF Referrals / Follow Up: Rosi Hood MD [Primary Care Provider] - Disposition Disposition (needs filled in before D/C Order can be placed): Home, Self Care
--- NOTE | 2025-03-19 12:55 | PCM.POST.ANE ---
Anesthesia: Postop Eval I Current Vital Signs Temperature: 97.3 F Pulse Rate: 89 Blood Pressure: 118/69 Respiratory Rate: 16 Pulse Ox: 93 Oxygen Delivery Method: Room Air Assessment Airway patent: Yes Spontaneous unlabored respirations: Yes Mental status: Awake and Calm nausea: No Vomiting: No Anesthesia Complication: No Fluid Hydration Crystalloid volume administer (ml): 1,200 Total IV fluid infused: 1,200 Progress Note Anesthesia document: Postop Eval 1 completed: Yes
[2025-03-19] MEDS: Ketorolac 30 MG/ML Syringe IV (13:20)
--- NOTE | 2025-03-19 13:26 | POSTOPAN2_ITS ---
Anesthesia Postop Eval I Sum Postop Eval Completion status Anesthesia document: Postop Eval 1 completed: Yes Anesthesia Postop Eval I Summary Anesthesia Postop Eval I Summary: Anesthesia Postop Eval I: Assessment Summary Airway patent Yes 03/19/25 12:57 CLOCK REPAIR [email or web address] Spontaneous unlabored Yes 03/19/25 12:57 CLOCK REPAIR TECHNICIAN.[email or web address] respirations Mental status Awake,Calm 03/19/25 12:57 CLOCK REPAIR [email or web address] nausea No 03/19/25 12:57 CLOCK REPAIR TECHNICIAN.[email or web address] Vomiting No 03/19/25 12:57 CLOCK REPAIR TECHNICIAN.[email or web address] Anesthesia Postop Eval I: Fluid Summary Crystalloid volume administer 1,200 03/19/25 12:57 CLOCK REPAIR TECHNICIAN.[email or web address] (ml) Colloids volume administered ( ml) Blood Product volume administered (ml) Total IV fluid infused 1,200 03/19/25 12:57 CLOCK REPAIR TECHNICIAN.[email or web address] Anesthesia Postop Eval I: Summary Notes Anesthesia Complication No 03/19/25 12:57 CLOCK REPAIR TECHNICIAN.[email or web address] Anesthesia Complication Comment: Post-operative progress note Anesthesia: Postop Eval II Evaluation Mental status: Awake Pain Level: 0 nausea: No Vomiting: No
--- NOTE | 2025-03-19 13:26 | PCM.POSTANE2 ---
Anesthesia Postop Eval I Sum Postop Eval Completion status Anesthesia document: Postop Eval 1 completed: Yes Anesthesia Postop Eval I Summary Anesthesia Postop Eval I Summary: Anesthesia Postop Eval I: Assessment Summary Airway patent Yes 03/19/25 12:57 PUBLIC RECORDS [email or web address].[email or web address] Spontaneous unlabored Yes 03/19/25 12:57 PUBLIC RECORDS [email or web address].[email or web address] respirations Mental status Awake,Calm 03/19/25 12:57 PUBLIC RECORDS [email or web address].[email or web address] nausea No 03/19/25 12:57 PUBLIC RECORDS OFFICER.[email or web address] Vomiting No 03/19/25 12:57 PUBLIC RECORDS [email or web address].[email or web address] Anesthesia Postop Eval I: Fluid Summary Crystalloid volume administer 1,200 03/19/25 12:57 PUBLIC RECORDS [email or web address].[email or web address] (ml) Colloids volume administered ( ml) Blood Product volume administered (ml) Total IV fluid infused 1,200 03/19/25 12:57 PUBLIC RECORDS [email or web address].[email or web address] Anesthesia Postop Eval I: Summary Notes Anesthesia Complication No 03/19/25 12:57 PUBLIC RECORDS [email or web address].[email or web address] Anesthesia Complication Comment: Post-operative progress note Anesthesia: Postop Eval II Evaluation Mental status: Awake Pain Level: 0 nausea: No Vomiting: No
[2025-03-19] MEDS: Acetaminophen 325 MG Tablet 650 MG PO (14:51)
== END 2025-03-19 15:58 | disposition home or self-care (01) ==
LOC: SDC 09:32 → AC 09:34
PROVIDERS: PCP Internal Medicine; Referring Provider Surgery; Visit Provider Surgery
PROC: (CPT 47610; principal; 2025-03-19 10:40)
DX: K80.10 Calculus of gallbladder with chronic cholecystitis without obstruction (principal); I10 Essential (primary) hypertension; K21.9 Gastro-esophageal reflux disease without esophagitis; Z79.899 Other long term (current) drug therapy
CPT/HCPCS: 47562; 00790; 88304; 93005; J2405